=== PATIENT | female | born 1990 | race Hispanic/Latino ===

== ENCOUNTER → 2016-05-21 | Outpatient (CLI) | payer OTHER, MEDICAID ==
[~2016-05-21] MED LIST: ACYC800T PO; CEPH500C PO; CHLO15MO3 MM; CODE-54 PO; FRS325T PO; HYDR-3720 PO; HYDR-690 PO; HYDR1TAB PO; IBP600T1 PO; IBUP-15; METR500T21 PO; PREN1TAB39 PO; PREN1TAB71 PO; PROM25SU10 RC
--- OUTSIDE RECORDS SUMMARY | 2016-05-21 12:56 | XMS REPORT | Continuity of Care Document ---
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 02/17/2010 Ot 528.9 ORAL SOFT TISSUE DIS NEC 02/19/2010 Ot 276.51 DEHYDRATION 02/19/2010 Ot 523.10 CHRONIC GINGIVITIS, PLAQUE INDUCED 02/19/2010 Ot 599.0 URIN TRACT INFECTION NOS 02/19/2010 Ot 780.60 FEVER, UNSPECIFIED 02/19/2010 Ot 787.03 VOMITING ALONE 10/15/2010 LOI CARDOSO DO K V72.41 TEST NEGATIVE RESULT 10/15/2010 RADHATIARA BOO, YENNY A V72.41 TEST NEGATIVE RESULT 10/15/2010 RADHATIARA BOO, YENNY A V72.41 TEST NEGATIVE RESULT 10/15/2010 RADHATIARA BOO, YENNY A V72.41 TEST NEGATIVE RESULT 10/15/2010 RADHA APRN, YENNY A V72.41 TEST NEGATIVE RESULT 10/15/2010 RADHA APRN, YENNY A V72.41 TEST NEGATIVE RESULT 10/15/2010 RADHA APRN, YENNY A V72.41 TEST NEGATIVE RESULT 10/15/2010 YAMILEX BUI DDS V72.41 TEST NEGATIVE RESULT 10/15/2010 RADHA RAJEEV, YENNY A V72.41 TEST NEGATIVE RESULT 10/15/2010 ROBBY CARDOSO DOA K V72.41 TEST NEGATIVE RESULT 10/15/2010 ROBBY CARDOSO DOA K V72.41 TEST NEGATIVE RESULT 10/15/2010 ARPITA BROWN MD V72.41 TEST NEGATIVE RESULT 10/15/2010 LOI CARDOSO DO K V72.41 TEST NEGATIVE RESULT 10/15/2010 STEPHANIE WARE, ARPITA Oseguera V72.41 TEST NEGATIVE RESULT 10/15/2010 STEPHANIE WARE, ARPITA Oseguera V72.41 TEST NEGATIVE RESULT 10/15/2010 RADHAYENNY Ayala APRN A V72.41 TEST NEGATIVE RESULT 10/15/2010 RADHAYENNY Ayala APRN A V72.41 TEST NEGATIVE RESULT 10/15/2010 LOI CARDOSO DO V72.41 TEST NEGATIVE RESULT 10/15/2010 RADHAYENNY Ayala APRN A V72.41 TEST NEGATIVE RESULT 04/16/2011 Ot 671.13 VARICOSE VULVA-ANTEPART 06/18/2011 Ot 664.01 DEL W 1 DEG LACERAT-DEL 06/18/2011 Ot V04.81 ND FOR PROPHYLACTIC VACCIN AND INOCULATI 06/18/2011 Ot V27.0 DELIVER-SINGLE LIVEBORN 06/07/2012 LOI CARDOSO DO 599.0 URINARY TRACT INFECTION 06/07/2012 LOI CARDOSO DO 788.41 URINARY FREQUENCY 06/07/2012 LOI CARDOSO DO 789.09 ABDOMINAL PAIN OTHER SPECIFIED SITE 06/07/2012 LOI CARDOSO DO V25.42 CONTRACEPTION SURVEILLANCE (IUD) 06/07/2012 LOI CARDOSO DO V74.5 STD SCREEN 06/07/2012 YENNY GARCIA APRN A 599.0 URINARY TRACT INFECTION 06/07/2012 MEGHA GARCIA APRNIDI A 788.41 URINARY FREQUENCY 06/07/2012 MEGHA GARCIA APRNIDI A 789.09 ABDOMINAL PAIN OTHER SPECIFIED SITE 06/07/2012 YENNY GARCIA APRN A V25.42 CONTRACEPTION SURVEILLANCE (IUD) 06/07/2012 YENNY GARCIA APRN A V74.5 STD SCREEN 06/07/2012 MEGHA GARCIA APRNIDI A 599.0 URINARY TRACT INFECTION 06/07/2012 MEGHA GARCIA APRNIDI A 788.41 URINARY FREQUENCY 06/07/2012 MEGHA GARCIA APRNIDI A 789.09 ABDOMINAL PAIN OTHER SPECIFIED SITE 06/07/2012 YENNY GARCIA APRN A V25.42 CONTRACEPTION SURVEILLANCE (IUD) 06/07/2012 YENNY GARCIA APRN A V74.5 STD SCREEN 06/07/2012 MEGHA GARCIA APRNIDI A 599.0 URINARY TRACT INFECTION 06/07/2012 MEGHA GARCIA APRNIDI A 788.41 URINARY FREQUENCY 06/07/2012 MEGHA GARCIA APRNIDI A 789.09 ABDOMINAL PAIN OTHER SPECIFIED SITE 06/07/2012 MEGHA GARCIA APRNIDI A V25.42 CONTRACEPTION SURVEILLANCE (IUD) 06/07/2012 MEGHA GARCIA APRNIDI A V74.5 STD SCREEN 06/07/2012 MEGHA GARCIA APRNIDI A 599.0 URINARY TRACT INFECTION 06/07/2012 MEGHA GARCIA APRNIDI A 788.41 URINARY FREQUENCY 06/07/2012 MEGHA GARCIA APRNIDI A 789.09 ABDOMINAL PAIN OTHER SPECIFIED SITE 06/07/2012 YENNY GARCIA APRN A V25.42 CONTRACEPTION SURVEILLANCE (IUD) 06/07/2012 YENNY GARCIA APRN A V74.5 STD SCREEN 06/07/2012 YENNY GARCIA APRN A 599.0 URINARY TRACT INFECTION 06/07/2012 MEGHA GARCIA APRNIDI A 788.41 URINARY FREQUENCY 06/07/2012 YENNY GARCIA APRN A 789.09 ABDOMINAL PAIN OTHER SPECIFIED SITE 06/07/2012 YENNY GARCIA APRN A V25.42 CONTRACEPTION SURVEILLANCE (IUD) 06/07/2012 YENNY GARCIA APRN A V74.5 STD SCREEN 06/07/2012 YENNY GARCIA APRN A 599.0 URINARY TRACT INFECTION 06/07/2012 MEGHA GARCIA APRNIDI A 788.41 URINARY FREQUENCY 06/07/2012 MEGHA GARCIA APRNIDI A 789.09 ABDOMINAL PAIN OTHER SPECIFIED SITE 06/07/2012 MEGHA GARCIA APRNIDI A V25.42 CONTRACEPTION SURVEILLANCE (IUD) 06/07/2012 MEGHA GARCIA APRNIDI A V74.5 STD SCREEN 06/07/2012 WHITE DDS, YAMILEX J 599.0 URINARY TRACT INFECTION 06/07/2012 WHITE DDS, YAMILEX J 788.41 URINARY FREQUENCY 06/07/2012 WHITE DDS, YAMILEX J 789.09 ABDOMINAL PAIN OTHER SPECIFIED SITE 06/07/2012 RAMYA CASTELANS, YAMILEX Oseguera V25.42 CONTRACEPTION SURVEILLANCE (IUD) 06/07/2012 RAMYA CASTELANS, YAMILEX Oseguera V74.5 STD SCREEN 06/07/2012 MEGHA GARCIA APRNIDI A 599.0 URINARY TRACT INFECTION 06/07/2012 RADHA BOO YENNY A 788.41 URINARY FREQUENCY 06/07/2012 MEGHA GARCIA APRNIDI A 789.09 ABDOMINAL PAIN OTHER SPECIFIED SITE 06/07/2012 RADHA BOO YENNY A V25.42 CONTRACEPTION SURVEILLANCE (IUD) 06/07/2012 RADHA BOO, YENNY A V74.5 STD SCREEN 06/07/2012 CARDOSO DO, LOI K 599.0 URINARY TRACT INFECTION 06/07/2012 CARDOSO DO, LOI K 788.41 URINARY FREQUENCY 06/07/2012 CARDOSO DO, LOI K 789.09 ABDOMINAL PAIN OTHER SPECIFIED SITE 06/07/2012 CARDOSO DO LIO K V25.42 CONTRACEPTION SURVEILLANCE (IUD) 06/07/2012 CARDOSO DO, LOI K V74.5 STD SCREEN 06/07/2012 CARDOSO DO, LOI K 599.0 URINARY TRACT INFECTION 06/07/2012 CARDOSO DO, LOI K 788.41 URINARY FREQUENCY 06/07/2012 CARDOSO DO, LOI K 789.09 ABDOMINAL PAIN OTHER SPECIFIED SITE 06/07/2012 CARDOSO DO, LOI K V25.42 CONTRACEPTION SURVEILLANCE (IUD) 06/07/2012 CARDOSO DO, LOI K V74.5 STD SCREEN 06/07/2012 ARPITA BROWN MD 599.0 URINARY TRACT INFECTION 06/07/2012 ARPITA BROWN MD 788.41 URINARY FREQUENCY 06/07/2012 ARPITA BROWN MD 789.09 ABDOMINAL PAIN OTHER SPECIFIED SITE 06/07/2012 ARPITA BROWN MD V25.42 CONTRACEPTION SURVEILLANCE (IUD) 06/07/2012 ARPITA BROWN MD V74.5 STD SCREEN 06/07/2012 CARDOSO DO LOI K 599.0 URINARY TRACT INFECTION 06/07/2012 CARDOSO DO LOI K 788.41 URINARY FREQUENCY 06/07/2012 CARDOSO DO LOI K 789.09 ABDOMINAL PAIN OTHER SPECIFIED SITE 06/07/2012 ROBBY CARDOSO DOA K V25.42 CONTRACEPTION SURVEILLANCE (IUD) 06/07/2012 CARDOSO DO LOI K V74.5 STD SCREEN 06/07/2012 ARPITA BROWN MD 599.0 URINARY TRACT INFECTION 06/07/2012 ARPITA BROWN MD 788.41 URINARY FREQUENCY 06/07/2012 ARPITA BROWN MD 789.09 ABDOMINAL PAIN OTHER SPECIFIED SITE 06/07/2012 ARPITA BROWN MD V25.42 CONTRACEPTION SURVEILLANCE (IUD) 06/07/2012 ARPITA BROWN MD V74.5 STD SCREEN 06/07/2012 ARPITA BROWN MD 599.0 URINARY TRACT INFECTION 06/07/2012 ARPITA BROWN MD 788.41 URINARY FREQUENCY 06/07/2012 ARPITA BROWN MD 789.09 ABDOMINAL PAIN OTHER SPECIFIED SITE 06/07/2012 ARPITA BROWN MD V25.42 CONTRACEPTION SURVEILLANCE (IUD) 06/07/2012 ARPITA BROWN MD V74.5 STD SCREEN 06/07/2012 YENNY GARCIA APRN A 599.0 URINARY TRACT INFECTION 06/07/2012 MEGHA GARCIA APRNIDI A 788.41 URINARY FREQUENCY 06/07/2012 MEGHA GARCIA APRNIDI A 789.09 ABDOMINAL PAIN OTHER SPECIFIED SITE 06/07/2012 YENNY GARCIA APRN A V25.42 CONTRACEPTION SURVEILLANCE (IUD) 06/07/2012 MEGHA GARCIA APRNIDI A V74.5 STD SCREEN 06/07/2012 MEGHA GARCIA APRNIDI A 599.0 URINARY TRACT INFECTION 06/07/2012 MEGHA GARCIA APRNIDI A 788.41 URINARY FREQUENCY 06/07/2012 MEGHA GARCIA APRNIDI A 789.09 ABDOMINAL PAIN OTHER SPECIFIED SITE 06/07/2012 YENNY GARCIA APRN A V25.42 CONTRACEPTION SURVEILLANCE (IUD) 06/07/2012 RADHA BOO YENNY A V74.5 STD SCREEN 06/07/2012 ROBBY CARDOSO DOA K 599.0 URINARY TRACT INFECTION 06/07/2012 ROBBY CARDOSO DOA K 788.41 URINARY FREQUENCY 06/07/2012 LOI CARDOSO DO K 789.09 ABDOMINAL PAIN OTHER SPECIFIED SITE 06/07/2012 ROBBY CARDOSO DOA K V25.42 CONTRACEPTION SURVEILLANCE (IUD) 06/07/2012 ROBBY CARDOSO DOA K V74.5 STD SCREEN 06/07/2012 MEGHA GARCIA APRNIDI A 599.0 URINARY TRACT INFECTION 06/07/2012 MEGHA GARCIA APRNIDI A 788.41 URINARY FREQUENCY 06/07/2012 MEGHA GARCIA APRNIDI A 789.09 ABDOMINAL PAIN OTHER SPECIFIED SITE 06/07/2012 RADHA CHOPRAN, YENNY A V25.42 CONTRACEPTION SURVEILLANCE (IUD) 06/07/2012 RADHA CHOPRAN, YENNY A V74.5 STD SCREEN 12/28/2012 RADHA BOO, YENNY A V25.01 CONTRACEPTION - ORAL CONTRACEPTION 12/28/2012 RADHA BOO, YENNY A V25.01 CONTRACEPTION - ORAL CONTRACEPTION 12/28/2012 RADHA BOO YENNY A V25.01 CONTRACEPTION - ORAL CONTRACEPTION 12/28/2012 RADHA BOO, YENNY A V25.01 CONTRACEPTION - ORAL CONTRACEPTION 12/28/2012 RADHA BOO YENNY A V25.01 CONTRACEPTION - ORAL CONTRACEPTION 12/28/2012 RADHA BOO, YENNY A V25.01 CONTRACEPTION - ORAL CONTRACEPTION 12/28/2012 YAMILEX BUI DDS V25.01 CONTRACEPTION - ORAL CONTRACEPTION 12/28/2012 RADHA BOO YENNY A V25.01 CONTRACEPTION - ORAL CONTRACEPTION 12/28/2012 LOI CARDOSO DO V25.01 CONTRACEPTION - ORAL CONTRACEPTION 12/28/2012 LOI CARDOSO DO K V25.01 CONTRACEPTION - ORAL CONTRACEPTION 12/28/2012 ARPITA BROWN MD V25.01 CONTRACEPTION - ORAL CONTRACEPTION 12/28/2012 LOI CARDOSO DO K V25.01 CONTRACEPTION - ORAL CONTRACEPTION 12/28/2012 ARPITA BROWN MD V25.01 CONTRACEPTION - ORAL CONTRACEPTION 12/28/2012 ARPITA BROWN MD V25.01 CONTRACEPTION - ORAL CONTRACEPTION 12/28/2012 RADHA BOO YENNY A V25.01 CONTRACEPTION - ORAL CONTRACEPTION 12/28/2012 RADHA BOO YENYN A V25.01 CONTRACEPTION - ORAL CONTRACEPTION 12/28/2012 LOI CARDOSO DO V25.01 CONTRACEPTION - ORAL CONTRACEPTION 12/28/2012 RADHA YENNY BOO A V25.01 CONTRACEPTION - ORAL CONTRACEPTION 01/03/2013 IVON ZEE APRN Ot 842.00 SPRAIN OF WRIST NOS 01/03/2013 IVON ZEE APRN Ot 959.3 ELB/FOREARM/WRST INJ NOS 01/03/2013 IVON ZEE APRN Ot E000.8 OTHER EXTERNAL CAUSE STATUS 01/03/2013 IVON ZEE APRN Ot E888.9 FALL NOS 04/19/2013 RADHALucy BOO YENNY A V72.42 TEST POSITIVE RESULT 04/19/2013 RADHAMEGHA Ayala APRNIDI A V76.10 BREAST CANCER SCREENING 04/19/2013 RADHAMEGHA Ayala APRNIDI A V76.2 CERVICAL CANCER SCREENING (PAP SMEAR) 04/19/2013 RADHAMEGHA Ayala APRNIDI A V72.42 TEST POSITIVE RESULT 04/19/2013 RADHAMEGHA Ayala APRNIDI A V76.10 BREAST CANCER SCREENING 04/19/2013 RADHALucy BOO YENNY A V76.2 CERVICAL CANCER SCREENING (PAP SMEAR) 04/19/2013 RADHA APRN, YENNY A V72.42 TEST POSITIVE RESULT 04/19/2013 RADHA APRN, YENNY A V76.10 BREAST CANCER SCREENING 04/19/2013 RADHALucy BOO YENNY A V76.2 CERVICAL CANCER SCREENING (PAP SMEAR) 04/19/2013 RADHAMEGHA Ayala APRNIDI A V72.42 TEST POSITIVE RESULT 04/19/2013 RADHALucy BOO YENNY A V76.10 BREAST CANCER SCREENING 04/19/2013 RADHAMEGHA Ayala APRNIDI A V76.2 CERVICAL CANCER SCREENING (PAP SMEAR) 04/19/2013 RADHALucy BOO YENNY A V72.42 TEST POSITIVE RESULT 04/19/2013 RADHALucy BOO YENNY A V76.10 BREAST CANCER SCREENING 04/19/2013 RADHALucy BOO YENNY A V76.2 CERVICAL CANCER SCREENING (PAP SMEAR) 04/19/2013 YAMILEX BUI DDS V72.42 TEST POSITIVE RESULT 04/19/2013 YAMILEX BUI DDS V76.10 BREAST CANCER SCREENING 04/19/2013 YAMILEX BUI DDS V76.2 CERVICAL CANCER SCREENING (PAP SMEAR) 04/19/2013 YENNY GARCIA APRN A V72.42 TEST POSITIVE RESULT 04/19/2013 YENNY GARCIA APRN A V76.10 BREAST CANCER SCREENING 04/19/2013 YENNY GARCIA APRN A V76.2 CERVICAL CANCER SCREENING (PAP SMEAR) 04/19/2013 CARDOSO ROBBY MARCUMA K V72.42 TEST POSITIVE RESULT 04/19/2013 CARDOSO DO LOI K V76.10 BREAST CANCER SCREENING 04/19/2013 JANAE MARCUMROBBYA K V76.2 CERVICAL CANCER SCREENING (PAP SMEAR) 04/19/2013 CARDOSO ROBBY MARCUMA K V72.42 TEST POSITIVE RESULT 04/19/2013 CARDOSO ROBBY MARCUMA K V76.10 BREAST CANCER SCREENING 04/19/2013 CARDOSO ROBBY MARCUMA K V76.2 CERVICAL CANCER SCREENING (PAP SMEAR) 04/19/2013 ARPITA BROWN MD V72.42 TEST POSITIVE RESULT 04/19/2013 ARPITA BROWN MD V76.10 BREAST CANCER SCREENING 04/19/2013 ARPITA BROWN MD V76.2 CERVICAL CANCER SCREENING (PAP SMEAR) 04/19/2013 CARDOSO ROBBY MARCUMA K V72.42 TEST POSITIVE RESULT 04/19/2013 CARDOSO ROBBY MARCUMA K V76.10 BREAST CANCER SCREENING 04/19/2013 CARDOSO ROBBY MARCUMA K V76.2 CERVICAL CANCER SCREENING (PAP SMEAR) 04/19/2013 ARPITA BROWN MD V72.42 TEST POSITIVE RESULT 04/19/2013 ARPITA BROWN MD V76.10 BREAST CANCER SCREENING 04/19/2013 ARPITA BROWN MD V76.2 CERVICAL CANCER SCREENING (PAP SMEAR) 04/19/2013 ARPITA BROWN MD V72.42 TEST POSITIVE RESULT 04/19/2013 ARPITA BROWN MD6.10 BREAST CANCER SCREENING 04/19/2013 ARPITA BROWN MD V76.2 CERVICAL CANCER SCREENING (PAP SMEAR) 04/19/2013 YENNY GARCIA APRN V72.42 TEST POSITIVE RESULT 04/19/2013 RADHA ORCHID HAND, YENNY A V76.10 BREAST CANCER SCREENING 04/19/2013 RADHA CHOPRAN, YENNY A V76.2 CERVICAL CANCER SCREENING (PAP SMEAR) 04/19/2013 RADHA CHOPRAN, YENNY A V72.42 TEST POSITIVE RESULT 04/19/2013 RADHA CHOPRAN, YENNY A V76.10 BREAST CANCER SCREENING 04/19/2013 RADHA CHOPRAN, YENNY A V76.2 CERVICAL CANCER SCREENING (PAP SMEAR) 04/19/2013 CARDOSO DO LOI K V72.42 TEST POSITIVE RESULT 04/19/2013 CARDOSO DO, LOI K V76.10 BREAST CANCER SCREENING 04/19/2013 CARDOSO DO, LOI K V76.2 CERVICAL CANCER SCREENING (PAP SMEAR) 04/19/2013 RADHA BOO, YENNY A V72.42 TEST POSITIVE RESULT 04/19/2013 RADHA CHOPRAN, YENNY A V76.10 BREAST CANCER SCREENING 04/19/2013 RADHA CHOPRAN, YENNY A V76.2 CERVICAL CANCER SCREENING (PAP SMEAR) 04/24/2013 RADHA CHOPRAN, YENNY A 640.00 THREATENED 04/24/2013 RADHA ORCHID HAND, YENNY A 640.00 THREATENED 04/24/2013 RADHA ORCHID HAND, YENNY A 640.00 THREATENED 04/24/2013 RADHA ORCHID HAND, YENNY A 640.00 THREATENED 04/24/2013 RADHA ORCHID HAND, YENNY A 640.00 THREATENED 04/24/2013 YAMILEX BUI DDS 640.00 THREATENED 04/24/2013 RADHA ORCHID HAND, YENNY A 640.00 THREATENED 04/24/2013 ROBBY CARDOSO DOA K 640.00 THREATENED 04/24/2013 CARDOSO ROBBY MARCUMA K 640.00 THREATENED 04/24/2013 ARPITA BROWN MD 640.00 THREATENED 04/24/2013 ROBBY CARDOSO DOA K 640.00 THREATENED 04/24/2013 STEPHANIE WARE, ARPITA Oseguera 640.00 THREATENED 04/24/2013 ARPITA BROWN MD 640.00 THREATENED 04/24/2013 RADHA ORCHID HAND, YENNY A 640.00 THREATENED 04/24/2013 RADHA ORCHID HAND, YENNY A 640.00 THREATENED 04/24/2013 CARDOSO DO, LOI K 640.00 THREATENED 04/24/2013 RADHA ORCHID HAND, YENNY A 640.00 THREATENED 05/30/2013 RADHA ORCHID HAND, YENNY A V04.81 FLU SHOT 05/30/2013 RADHA ORCHID HAND, YENNY A V22.1 , NORMAL OTHER 05/30/2013 CARDOSO DO, LOI K V04.81 FLU SHOT 05/30/2013 CARDOSO DO, LOI K V22.1 , NORMAL OTHER 05/30/2013 CARDOSO DO, LOI K V04.81 FLU SHOT 05/30/2013 CARDOSO DO, LOI K V22.1 , NORMAL OTHER 05/30/2013 STEPHANIE WARE, ARPITA Oseguera V04.81 FLU SHOT 05/30/2013 STEPHANIE WARE, ARPITA Oseguera V22.1 , NORMAL OTHER 05/30/2013 CARDSOO DO, LOI K V04.81 FLU SHOT 05/30/2013 CARDOSO DO, LOI K V22.1 , NORMAL OTHER 05/30/2013 STEPHANIE WARE, ARPITA Oseguera V04.81 FLU SHOT 05/30/2013 ARPITA BROWN MD V22.1 , NORMAL OTHER 05/30/2013 ARPITA BROWN MD V04.81 FLU SHOT 05/30/2013 ARPITA BROWN MD V22.1 , NORMAL OTHER 05/30/2013 RADHA ORCHID HAND, YENNY A V04.81 FLU SHOT 05/30/2013 RDAHA ORCHID HAND, YENNY A V22.1 , NORMAL OTHER 05/30/2013 RADHA ORCHID HAND, YENNY A V04.81 FLU SHOT 05/30/2013 RADHA ORCHID HAND, YENNY A V22.1 , NORMAL OTHER 05/30/2013 CARDOSO DO, LOI K V04.81 FLU SHOT 05/30/2013 CARDOSO DO, LOI K V22.1 , NORMAL OTHER 05/30/2013 RADHA ORCHID HAND, YENNY A V04.81 FLU SHOT 05/30/2013 RADHA ORCHID HAND, YENNY A V22.1 , NORMAL OTHER 08/21/2013 CARDOSO DO, LOI K Ot V22.1 SUPERVIS OT NORMAL PREG 11/01/2013 STEPHANIE WARE, ARPITA Oseguera V06.1 TDAP DX 11/01/2013 STEPHANIE WARE, ARPITA Oseguera V06.1 TDAP DX 11/01/2013 YENNY GARCIA APRN V06.1 TDAP DX 11/01/2013 YENNY GARCIA APRN V06.1 TDAP DX 11/01/2013 LOI CARDOSO DO V06.1 TDAP DX 11/01/2013 YENNY GARCIA APRN V06.1 TDAP DX 11/24/2013 STEPHANIE WARE, ARPITA Oseguera Ot 644.03 THRT DOUGLAS LABOR-ANTEPART 12/08/2013 ARPITA BROWN MD Ot 650 NORMAL DELIVERY 12/08/2013 STEPHANIE WARE, ARPITA Oseguera Ot V06.1 [id number]-[id number], COMBINED [ 12/08/2013 ARPITA BROWN MD Ot V06.4 OSJ-ASNLIP-YOBCC-RUBELLA 12/08/2013 ARPITA BROWN MD Ot V27.0 DELIVER-SINGLE LIVEBORN 12/27/2013 YENNY GARCIA APRN V25.09 CONTRACEPTIVE COUNSELING - GENERAL 12/27/2013 YENNY GARCIA APRN V25.09 CONTRACEPTIVE COUNSELING - GENERAL 12/27/2013 LOI CARDOSO DO V25.09 CONTRACEPTIVE COUNSELING - GENERAL 12/27/2013 YENNY GARCIA APRN V25.09 CONTRACEPTIVE COUNSELING - GENERAL 01/18/2014 YENNY GARCIA APRN 616.10 VAGINITIS AND VULVOVAGINITIS UNSPECIFIED 01/18/2014 YENNY GARCIA APRN V24.2 F/U, ROUTINE 01/18/2014 YENNY GARCIA APRN V25.11 IUD INSERTION 01/18/2014 LOI CARDOSO DO 616.10 VAGINITIS AND VULVOVAGINITIS UNSPECIFIED 01/18/2014 LOI CARDOSO DO V24.2 F/U, ROUTINE 01/18/2014 LOI CARDOSO DO V25.11 IUD INSERTION 01/18/2014 YENNY GARCIA APRN 616.10 VAGINITIS AND VULVOVAGINITIS UNSPECIFIED 01/18/2014 YENNY GARCIA APRN V24.2 F/U, ROUTINE 01/18/2014 YENNY GARCIA APRN V25.11 IUD INSERTION 06/05/2014 JANAE MARCUM LOI Ramírez 460 ACUTE NASOPHARYNGITIS (COMMON COLD) 06/05/2014 YENNY GARCIA APRN 460 ACUTE NASOPHARYNGITIS (COMMON COLD) 07/31/2014 RADHA BOO, YENNY A 789.00 ABDOMINAL PAIN UNSPECIFIED SITE 01/12/2015 Ot 649.63 01/12/2015 Ot 649.53 01/12/2015 YENNY GARCIA A ORCHID HAND Ot V28.89 01/12/2015 YENNY GARCIA ORCHID HAND Ot V28.89 01/12/2015 YENNY GARCIA APRN Ot 640.03 01/12/2015 STEPHANIE WARE, ARPITA Oseguera Ot V22.1 01/12/2015 AMIRAH WARE, FLORENCIA Zelaya Ot B37.3 CANDIDIASIS OF VULVA AND VAGINA 01/12/2015 FLORENCIA MACARIO MD Ot B96.89 OTH BACTERIAL AGENTS THE CAUSE OF DIS 01/12/2015 FLORENCIA MACARIO MD Ot N76.0 ACUTE VAGINITIS 01/12/2015 FLORENCIA MACARIO MD Ot R10.30 LOWER ABDOMINAL PAIN, UNSPECIFIED 01/12/2015 Ot 649.63 01/12/2015 Ot 649.53 01/12/2015 YENNY GARCIA APRN Ot V28.89 01/12/2015 YENNY GARCIA APRN Ot V28.89 01/12/2015 YENNY GARCIA APRN Ot 640.03 01/12/2015 ARPITA BROWN MD Ot V22.1 01/12/2015 Ot 649.63 01/12/2015 Ot 649.53 01/12/2015 YENNY GARCIA A ORCHID HAND Ot V28.89 01/12/2015 YENNY GARCIA ORCHID HAND Ot V28.89 01/12/2015 YENNY GARCIA A ORCHID HAND Ot 640.03 01/12/2015 ARPITA BROWN MD Ot V22.1 02/19/2015 Ot 649.63 02/19/2015 Ot 649.53 02/19/2015 YENNY GARCIA ORCHID HAND Ot V28.89 02/19/2015 YENNY GARCIA ORCHID HAND Ot V28.89 02/19/2015 YENNY GARCIA ORCHID HAND Ot 640.03 02/19/2015 ARPITA BROWN MD Ot V22.1 02/19/2015 Ot 649.63 02/19/2015 Ot 649.53 02/19/2015 YENNY GARCIA ORCHID HAND Ot V28.89 02/19/2015 YENNY GARCIA ORCHID HAND Ot V28.89 02/19/2015 YENNY GARCIA APRN Ot 640.03 02/19/2015 STEPHANIE WARE, ARPITA Oseguera Ot V22.1 04/25/2015 Ot 649.63 04/25/2015 Ot 649.53 04/25/2015 YENNY GARCIA ORCHID HAND Ot V28.89 04/25/2015 RADHAYENNY ORCHID HAND Ot V28.89 04/25/2015 RADHAYENNY ORCHID HAND Ot 640.03 04/25/2015 STEPHANIE WARE, ARPITA Oseguera Ot V22.1 04/30/2015 STEPHANIE WARE, ARPITA Oseguera Ot Z36 04/30/2015 STEPHANIE WARE, ARPITA Oseguera Ot Z3A.09 04/30/2015 STEPHANIE WARE, ARPITA Oseguera Ot Z36 04/30/2015 STEPHANIE WARE, ARPITA Oseguera Ot Z3A.09 05/22/2015 STEPHANIE WARE, ARPITA Oseguera Ot Z36 05/22/2015 STEPHANIE WARE, ARPITA Oseguera Ot Z3A.09 06/05/2015 STEPHANIE WARE, ARPITA Oseguera Ot O20.9 06/05/2015 ARPITA BROWN MD Ot Z3A.14 06/27/2015 Ot 649.63 06/27/2015 Ot 649.53 06/27/2015 RADHAYENNY ORCHID HAND Ot V28.89 06/27/2015 RADHAYENNY ORCHID HAND Ot V28.89 06/27/2015 RADHAYENNY ORCHID HAND Ot 640.03 06/27/2015 STEPHANIE WARE, ARPITA Oseguera Ot V22.1 06/27/2015 STEPHANIE ARPITA WARE Ot O20.9 06/27/2015 ARPITA BROWN MD, Ot Z3A.14 06/27/2015 ARPITA BROWN MD, Ot Z36 06/27/2015 ARPITA BROWN MD, Ot Z3A.09 07/26/2015 Ot 649.63 UTERINE SIZE DATE DISCREPANCY, ANTEPARTU 07/26/2015 Ot 649.53 SPOTTING COMP , ANTEPARTUM COND 07/26/2015 YENNY GARCIA APRN Ot V28.89 OTHER SPECIFIED SCREENING 07/26/2015 YENNY GARCIA APRN Ot V28.89 OTHER SPECIFIED SCREENING 07/26/2015 YENNY GARCIA APRN Ot 640.03 THREATEN ABORT-ANTEPART 07/26/2015 ARPITA BROWN MD, Ot V22.1 SUPERVIS OTH NORMAL PREG 07/26/2015 ARPITA BROWN MD, Ot Z36 ENCOUNTER FOR SCREENING OF MOT 07/26/2015 ARPITA BROWN MD, Ot Z3A.09 9 WEEKS GESTATION OF 07/26/2015 ARPITA BROWN MD, Ot O20.9 HEMORRHAGE IN EARLY , UNSPECIFI 07/26/2015 ARPITA BROWN MD, Ot Z3A.14 14 WEEKS GESTATION OF 07/29/2015 ARPITA BROWN MD, Ot Z36 ENCOUNTER FOR SCREENING OF MOT 07/29/2015 ARPITA BROWN MD, Ot Z36 ENCOUNTER FOR SCREENING OF MOT 08/14/2015 ARPITA BROWN MD, Ot Z36 ENCOUNTER FOR SCREENING OF MOT 09/02/2015 ARPITA BROWN MD, Ot Z36 ENCOUNTER FOR SCREENING OF MOT 10/21/2015 Ot 649.63 UTERINE SIZE DATE DISCREPANCY, ANTEPARTU 10/21/2015 Ot 649.53 SPOTTING COMP , ANTEPARTUM COND 10/21/2015 YENNY GARCIA APRN Ot V28.89 OTHER SPECIFIED SCREENING 10/21/2015 YENNY GARCIA APRN Ot V28.89 OTHER SPECIFIED SCREENING 10/21/2015 YENNY GARCIA APRN Ot 640.03 THREATEN ABORT-ANTEPART 10/21/2015 ARPITA BROWN MD, Ot V22.1 SUPERVIS OTH NORMAL PREG 10/21/2015 ARPITA BROWN MD, Ot Z36 ENCOUNTER FOR SCREENING OF MOT 10/21/2015 ARPITA BROWN MD, Ot Z3A.09 9 WEEKS GESTATION OF 10/21/2015 ARPITA BROWN MD, Ot O20.9 HEMORRHAGE IN EARLY , UNSPECIFI 10/21/2015 ARPITA BROWN MD, Ot Z3A.14 14 WEEKS GESTATION OF 10/21/2015 ARPITA BROWN MD, Ot Z36 ENCOUNTER FOR SCREENING OF MOT 10/22/2015 ARPITA BROWN MD, Ot N94.89 OTH COND ASSOC W FEMALE GENITAL ORGANS A 10/22/2015 ARPITA BROWN MD, Ot Z3A.36 36 WEEKS GESTATION OF 10/27/2015 JOSEPH IBARRA MD Ot O36.8130 DECREASED MOVEMENTS, THIRD TRIMEST 10/27/2015 JOSEPH IBARRA MD, Ot Z3A.36 36 WEEKS GESTATION OF 10/28/2015 ARPITA BROWN MD, Ot N94.89 OTH COND ASSOC W FEMALE GENITAL ORGANS A 10/28/2015 ARPITA BROWN MD, Ot Z3A.36 36 WEEKS GESTATION OF 11/07/2015 JOSEPH IBARRA MD Ot O36.8130 DECREASED MOVEMENTS, THIRD TRIMEST 11/07/2015 JOSEPH IBARRA MD, Ot Z3A.36 36 WEEKS GESTATION OF 11/14/2015 Ot 649.63 UTERINE SIZE DATE DISCREPANCY, ANTEPARTU 11/14/2015 Ot 649.53 SPOTTING COMP , ANTEPARTUM COND 11/14/2015 YENNY GARCIA APRN Ot V28.89 OTHER SPECIFIED SCREENING 11/14/2015 YENNY GARCIA APRN Ot V28.89 OTHER SPECIFIED SCREENING 11/14/2015 YENNY GARCIA APRN Ot 640.03 THREATEN ABORT-ANTEPART 11/14/2015 ARPITA BROWN MD, Ot V22.1 SUPERVIS OTH NORMAL PREG 11/14/2015 ARPITA BROWN MD, Ot Z36 ENCOUNTER FOR SCREENING OF MOT 11/14/2015 ARPITA BROWN MD, Ot Z3A.09 9 WEEKS GESTATION OF 11/14/2015 ARPITA BROWN MD, Ot O20.9 HEMORRHAGE IN EARLY , UNSPECIFI 11/14/2015 ARPITA BROWN MD, Ot Z3A.14 14 WEEKS GESTATION OF 11/14/2015 ARPITA BROWN MD, Ot Z36 ENCOUNTER FOR SCREENING OF MOT 11/15/2015 Ot 649.63 UTERINE SIZE DATE DISCREPANCY, ANTEPARTU 11/15/2015 Ot 649.53 SPOTTING COMP , ANTEPARTUM COND 11/15/2015 YENNY GARCIA ORCHID HAND Ot V28.89 OTHER SPECIFIED SCREENING 11/15/2015 YENNY GARCIA ORCHID HAND Ot V28.89 OTHER SPECIFIED SCREENING 11/15/2015 YENNY GARCIA APRN Ot 640.03 THREATEN ABORT-ANTEPART 11/15/2015 ARPITA BROWN MD, Ot V22.1 SUPERVIS OTH NORMAL PREG 11/15/2015 ARPITA BROWN MD, Ot Z36 ENCOUNTER FOR SCREENING OF MOT 11/15/2015 ARPITA BROWN MD, Ot Z3A.09 9 WEEKS GESTATION OF 11/15/2015 ARPITA BROWN MD, Ot O20.9 HEMORRHAGE IN EARLY , UNSPECIFI 11/15/2015 ARPITA BROWN MD, Ot Z3A.14 14 WEEKS GESTATION OF 11/15/2015 ARPITA BROWN MD, Ot Z36 ENCOUNTER FOR SCREENING OF MOT 11/15/2015 ARPITA BROWN MD, Ot Z36 ENCOUNTER FOR SCREENING OF MOT 11/15/2015 ARPITA BROWN MD, Ot Z3A.09 9 WEEKS GESTATION OF 11/15/2015 ARPITA BROWN MD, Ot O20.9 HEMORRHAGE IN EARLY , UNSPECIFI 11/15/2015 ARPITA BROWN MD, Ot Z3A.14 14 WEEKS GESTATION OF 11/15/2015 ARPITA BROWN MD, Ot Z36 ENCOUNTER FOR SCREENING OF MOT 11/15/2015 ARPITA BROWN MD, Ot Z36 ENCOUNTER FOR SCREENING OF MOT 11/15/2015 ARPITA BROWN MD, Ot Z3A.09 9 WEEKS GESTATION OF 11/15/2015 ARPITA BROWN MD, Ot O20.9 HEMORRHAGE IN EARLY , UNSPECIFI 11/15/2015 ARPITA BROWN MD, Ot Z3A.14 14 WEEKS GESTATION OF 11/15/2015 ARPITA BROWN MD, Ot Z36 ENCOUNTER FOR SCREENING OF MOT 11/16/2015 ARPITA BROWN MD, Ot O80 ENCOUNTER FOR FULL-TERM UNCOMPLICATED DE 11/16/2015 ARPITA BROWN MD, Ot Z23 ENCOUNTER FOR IMMUNIZATION 11/16/2015 ARPITA BROWN MD, Ot Z37.0 SINGLE LIVE 11/16/2015 ARPITA BROWN MD, Ot Z3A.39 39 WEEKS GESTATION OF Procedures Code Description Performed By Performed On 96.49 06/16/2011 75.69 06/17/2011 02709 URINE TEST (IN-HOUSE) 06/07/2012 75565 UA W/ CULTURE IF INDICATED 06/07/2012 63252 TRICHOMONAS (IN-HOUSE) 06/07/2012 22642 CULTURE UROGENITAL 06/07/2012 57281 CULTURE URINE 21705 GC/CHLAM PROBE ([facility]) 06/07/2012 39050 URINE TEST (IN-HOUSE) 12/28/2012 94111 US OB - EARLY <14 WEEKS 04/19/2013 73435 CULTURE UROGENITAL 04/19/2013 14953 GC/CHLAM PROBE ([facility]) 04/19/2013 22124 PAP SMEAR 2013 Q0091 PAP SMEAR OBTAIN SMEAR 04/19/2013 [id number] TEST, URINE (IN-HOUSE) 04/19/2013 52836 TRICHOMONAS (IN-HOUSE) 04/19/2013 81986 ROUTINE VENIPUNCTURE 04/25/2013 51248 HCG QUANTITATIVE 04/25/2013 94815 BLOOD TYPE/Rh FACTOR 04/25/2013 08571 ROUTINE VENIPUNCTURE 04/27/2013 39975 US OB - EARLY <14 WEEKS 04/27/2013 00541 HCG QUANTITATIVE 04/27/2013 04626 ROUTINE VENIPUNCTURE 05/01/2013 80385 HCG QUANTITATIVE 05/01/2013 86895 US OB - FOLLOW UP 05/02/2013 89944 ROUTINE VENIPUNCTURE 05/30/2013 96581 T4 FREE 2013 63704 T3 TOTAL 2013 35444 SYPHILLIS-STATE [facility] 05/30/2013 29715 HIV (STATE [facility]) 05/30/2013 15194 ANTIBODY SCREEN (order) 05/30/2013 40168 HEP B SURFACE ANTIGEN (STATE) 05/30/2013 34154 UA OB DIP 2013 93930 CBC 05/30/2013 81555 TSH 05/30/2013 [id number] ANTIBODY SCREEN (RESULT ONLY) 05/31/2013 93098 BLOOD TYPE/Rh FACTOR 05/31/2013 02839 RUBELLA ANTIBODY, IGG 05/31/2013 74381 CULTURE URINE 55544 UA OB DIP 2013 70602 UA OB DIP 2013 72412 OB - FOLLOW UP 08/21/2013 68975 UA OB DIP 2013 96774 OB - COMPLETE >14 WEEKS 09/01/2013 31212 ROUTINE VENIPUNCTURE 09/27/2013 93738 UA OB DIP 2013 25770 CBC 09/27/2013 98607 GLUCOSE JANNY 1 HOUR 09/27/2013 27825 UA OB DIP 2013 69303 UA OB DIP 2013 67297 UA OB DIP 2013 11073 UA OB DIP 2013 24061 CULTURE GROUP B STREP VAG 12/01/2013 81920 UA OB DIP 2013 73.59 12/07/2013 60296 IUD INSERTION 12/2013 J7302 LEVONORGESTREL IU CONTRACEPT 01/18/2014 02854 TEST, URINE (IN-HOUSE) 01/18/2014 [id number] 11/15/2015 Results Test Result Range Complete blood count (CBC) with automated white blood cell (WBC) differential - 11/14/15 21:45 Blood leukocytes automated count (number/volume) 7.0 10*3/ uL 4.3-11.0 Blood erythrocytes automated count (number/volume) 3.84 10*6 /uL 4.35-5.85 Venous blood hemoglobin measurement (mass/volume) 11.6 g/dL 11.5-16.0 Blood hematocrit (volume fraction) 35 % 35-52 Automated erythrocyte mean corpuscular volume 90 [foz_us] 80-99 Automated erythrocyte mean corpuscular hemoglobin (mass per erythrocyte) 30 pg 25-34 Automated erythrocyte mean corpuscular hemoglobin concentration measurement ( mass/volume) 34 g/dL 32-36 Automated erythrocyte distribution width ratio 13.1 % 10.0-14.5 Automated blood platelet count (count/volume) 194 10*3/uL 130-400 Automated blood platelet mean volume measurement 10.8 [foz_ us] 7.4-10.4 Automated blood neutrophils/100 leukocytes 58 % 42-75 Automated blood lymphocytes/100 leukocytes 27 % 12-44 Blood monocytes/100 leukocytes 14 % 0-12 Automated blood eosinophils/100 leukocytes 1 % 0-10 Automated blood basophils/100 leukocytes 0 % 0-10 Blood neutrophils automated count (number/volume) 4.1 10*3 1.8-7.8 Blood lymphocytes automated count (number/volume) 1.9 10*3 1.0-4.0 Blood monocytes automated count (number/volume) 1.0 10*3 0.0-1.0 Automated eosinophil count 0.1 10*3/uL 0.0-0.3 Automated blood basophil count (count/volume) 0.0 10*3/uL 0.0-0.1 Blood type T Indirect antibody screen panel - 11/14/15 21:45 ABO+Rh group OP NRG Transfusion band number [id number] [facility] Blood group antibody screen NEGATIVE NR Complete blood count (CBC) with automated white blood cell (WBC) differential - 11/16/15 05:36 Blood leukocytes automated count (number/volume) 8.7 10*3/ uL 4.3-11.0 Blood erythrocytes automated count (number/volume) 3.74 10*6 /uL 4.35-5.85 Venous blood hemoglobin measurement (mass/volume) 11.0 g/dL 11.5-16.0 Blood hematocrit (volume fraction) 34 % 35-52 Automated erythrocyte mean corpuscular volume 91 [foz_us] 80-99 Automated erythrocyte mean corpuscular hemoglobin (mass per erythrocyte) 29 pg 25-34 Automated erythrocyte mean corpuscular hemoglobin concentration measurement ( mass/volume) 32 g/dL 32-36 Automated erythrocyte distribution width ratio 13.1 % 10.0-14.5 Automated blood platelet count (count/volume) 177 10*3/uL 130-400 Automated blood platelet mean volume measurement 10.5 [foz_ us] 7.4-10.4 Automated blood neutrophils/100 leukocytes 57 % 42-75 Automated blood lymphocytes/100 leukocytes 29 % 12-44 Blood monocytes/100 leukocytes 13 % 0-12 Automated blood eosinophils/100 leukocytes 1 % 0-10 Automated blood basophils/100 leukocytes 0 % 0-10 Blood neutrophils automated count (number/volume) 4.9 10*3 1.8-7.8 Blood lymphocytes automated count (number/volume) 2.5 10*3 1.0-4.0 Blood monocytes automated count (number/volume) 1.2 10*3 0.0-1.0 Automated eosinophil count 0.1 10*3/uL 0.0-0.3 Automated blood basophil count (count/volume) 0.0 10*3/uL 0.0-0.1 Encounters ACCT No. Visit Date/Time Discharge Status Pt. Type Provider Facility Loc./Unit Complaint [id number] 07/31/2014 09:03:00 07/31/2014 23: 59:59 CLS Outpatient YENNY GARCIA APRN [id number] 06/05/2014 10:43:00 06/05/2014 23: 59:59 CLS Outpatient LOI CARDOSO DO [id number] 01/18/2014 13:26:00 01/18/2014 23: 59:59 CLS Outpatient YENNY GARCIA APRN [id number] 12/27/2013 10:26:00 12/27/2013 23: 59:59 CLS Outpatient YENNY GARCIA APRN [id number] 12/06/2013 15:34:00 12/06/2013 23: 59:59 CLS Outpatient ARPITA BROWN MD [id number] 11/22/2013 13:59:00 11/22/2013 23: 59:59 CLS Outpatient ARPITA BROWN MD [id number] 10/18/2013 13:56:00 10/18/2013 23: 59:59 CLS Outpatient LOI CARDOSO DO [id number] 09/27/2013 13:56:00 09/27/2013 23: 59:59 CLS Outpatient ARPITA BROWN MD [id number] 07/26/2013 14:30:00 07/26/2013 23: 59:59 CLS Outpatient LOI CARDOSO DO [id number] 06/28/2013 13:43:00 06/28/2013 23: 59:59 CLS Outpatient LOI CARDOSO DO [id number] 05/30/2013 09:54:00 05/30/2013 23: 59:59 CLS Outpatient [facility] YENNY BOO [id number] 05/15/2013 07:39:00 05/15/2013 23: 59:59 CLS Outpatient RAMYA YAMILEX WHITMORE Oumar [id number] 05/02/2013 15:16:00 05/02/2013 23: 59:59 CLS Outpatient [facility] YENNY BOO [id number] 05/01/2013 07:56:00 05/01/2013 23: 59:59 [id number] 04/27/2013 08:03:00 04/27/2013 23: 59:59 [facility] [id number] 04/25/2013 08:22:00 04/25/2013 23: 59:59 [facility] [id number] 04/19/2013 08:52:00 04/19/2013 23: 59:59 [facility] [id number] 12/28/2012 14:01:00 12/28/2012 23: 59:59 [facility] [id number] 06/07/2012 10:59:00 06/07/2012 23: 59:59 CLS Outpatient LOI CARDOSO DO
--- NOTE | 2016-05-21 15:31 | Diagnostic Imaging Report ---
First trimester OB ultrasound. INDICATION: Dating. FINDINGS: There is a normal-appearing single intrauterine . An embryo is seen with cardiac activity at 149 beats per minute. The crown-rump length is at 8 weeks and zero days. MATTIE is 12/31/16. There is subchorionic hemorrhage measuring 2.6 x 1 x 4.5 CM around the gestational sac. IMPRESSION: Live single intrauterine . Small subchorionic hemorrhage. Dictated by: Dictated on workstation # [id number]
== END ==
LOC: RAD 12:51
PROVIDERS: ATTEND Family Medicine
DX: Z36 Encounter for antenatal screening of mother (principal); Z3A.01 Less than 8 weeks gestation of pregnancy
CPT/HCPCS: 76801

== ENCOUNTER → 2016-08-06 | Outpatient (CLI) | payer OTHER, MEDICAID ==
--- NOTE | 2016-08-06 13:43 | Diagnostic Imaging Report ---
OB ultrasound. INDICATION: survey. FINDINGS: heart rate is 139 beats per minutes. The placenta is anterior and extends to the lower uterine segment with coverage of the internal os compatible with placenta previa. The four-chamber view, the cord insertion, the stomach, the ventricles, and the spine appear unremarkable. No hydronephrosis or cystic mass in the kidneys seen. There is suggestion of two umbilical arteries and therefore three-vessel cord. The growth parameters are: Biparietal diameter: 19 weeks 0 day. Head circumference: 19 weeks 0 day. Abdominal circumference: 19 week 5 days. Femur length: 19 weeks 2 days. These average at: 19 weeks and 2 days. This is compatible with the gestational age of 19 weeks and 0 days based on first trimester ultrasound dating. IMPRESSION: Appropriate interval growth. Placenta previa. Follow-up in 8 weeks is suggested to reevaluate the placenta position. Dictated by: Dictated on workstation # [id number]
== END ==
LOC: RAD 10:51
PROVIDERS: ATTEND Family Medicine
DX: Z36 Encounter for antenatal screening of mother (principal); Z3A.19 19 weeks gestation of pregnancy
CPT/HCPCS: 76805

== ENCOUNTER → 2016-09-29 | Outpatient (CLI) | payer OTHER, MEDICAID ==
--- NOTE | 2016-09-29 17:25 | Diagnostic Imaging Report ---
INDICATION: Followup placenta previa TECHNIQUE: Multiple real-time grayscale images were obtained over the gravid uterus. COMPARISON: 08/06/16 FINDINGS: heart rate is 138 beats per minute. The placenta is anterior and does not extend into the lower uterine segment at this time. The fetus is in breech position. There is an adequate amount of amniotic fluid seen. IMPRESSION: No placenta previa. Dictated by: Dictated on workstation # [id number]
== END ==
LOC: RAD 12:59
PROVIDERS: ATTEND Family Medicine
DX: O44.00 Complete placenta previa NOS or without hemorrhage, unspecified trimester (principal); Z3A.00 Weeks of gestation of pregnancy not specified
CPT/HCPCS: 76816

== ENCOUNTER 2016-12-09 14:09 | Outpatient (CLI) | payer OTHER, MEDICAID ==
[2016-12-09] VITALS (12 sets, daily range): BP systolic 118–143; BP diastolic 68–85
[~2016-12-09] VITALS: Ht 165.1 cm; Wt 78.0 kg
[2016-12-09 14:49] LABS: BILIRUBIN,URINE NEGATIVE (NEGATIVE); KETONES,URINE 2+ (NEGATIVE); LEUKOCYTE ESTERASE ,URINE 3+ (NEGATIVE); NITRITE,URINE NEGATIVE (NEGATIVE); PH,URINE 5 (5-9); PROTEIN,URINE 2+ (NEGATIVE); UROBILINOGEN,URINE NORMAL (NORMAL)
[2016-12-09 14:57] LABS: SQUAMOUS EPITHELIAL CELL,UR >50 /HPF
[2016-12-09] MEDS ORDERED: D5 LR IV SOLUTION 1,000 ML IV SCH (16:00)
[2016-12-09] MEDS ORDERED: D5 LR IV SOLUTION 1,000 ML IV ONE (16:13)
--- NOTE | 2016-12-10 16:27 | Physician Query-Final Dx ---
ALONSO COSME 12/10/16 1627: Clinic Account Progress/Dx Physician Query: Please give diagnosis Date of Service Dec 09, 2016 at 14:09 ARPITA BROWN MD 12/20/16 2240: Clinic Account Progress/Dx DIAGNOSIS: Diagnosis 1. IUP at 37 weeks, non labor 2. Uterine irritability ALONSO COSME Dec 10, 2016 16:27 ARPITA BROWN MD Dec 20, 2016 22:40
== END 2016-12-09 20:33 | disposition home or self-care (01) ==
LOC: WSo 14:09 → LDRP 14:10 → WSo 20:33
PROVIDERS: ATTEND Family Medicine
DX: O47.1 False labor at or after 37 completed weeks of gestation (principal); Z3A.37 37 weeks gestation of pregnancy
CPT/HCPCS: 81000; 96360; 96361; 99214

== ENCOUNTER 2016-12-20 21:04 | Inpatient (IN) | payer OTHER, MEDICAID ==
[2016-12-20] VITALS (9 sets, daily range): BP systolic 118–143; BP diastolic 62–98
[~2016-12-20] VITALS: Ht 165.1 cm; Wt 78.0 kg
[2016-12-20] MEDS ORDERED: D5 LR IV SOLUTION 1,000 ML IV ONE (21:13)
[2016-12-20] MEDS ORDERED: OXYTOCIN/NORMAL SALINE 500 ML IV ONE (21:27)
[2016-12-20] MEDS ORDERED: D5 LR IV SOLUTION 1,000 ML IV SCH (21:32)
[2016-12-20] MEDS ORDERED: MEPIVACAINE (CARBOCAINE) 2% 50 ML VIAL ONE (21:41)
[2016-12-20 21:48] LABS: BASOPHILS % (AUTO) 0 % (0-10); EOSINOPHILS # (AUTO) 0.1 10^3/uL (0.0-0.3); EOSINOPHILS % (AUTO) 1 % (0-10); LYMPHOCYTES # (AUTO) 1.9 X 10^3 (1.0-4.0); LYMPHOCYTES % (AUTO) 26 % (12-44); MEAN CORPUSCULAR HEMOGLOBIN 28 PG (25-34); MEAN CORPUSCULAR HGB CONC 33 G/DL (32-36); MEAN CORPUSCULAR VOLUME 87 FL (80-99); MEAN PLATELET VOLUME 11.2 FL (7.4-10.4); MONOCYTES # (AUTO) 0.8 X 10^3 (0.0-1.0); MONOCYTES % (AUTO) 11 % (0-12); NEUTROPHILS # (AUTO) 4.7 X 10^3 (1.8-7.8); NEUTROPHILS % (AUTO) 63 % (42-75); PLATELET COUNT 172 10^3/uL (130-400); WHITE BLOOD COUNT 7.6 10^3/uL (4.3-11.0)
[2016-12-20] MEDS ORDERED: CATHETER FLUSH 10 ML SYR IV SCH (22:00)
--- NOTE | 2016-12-20 22:24 | History & Physical-OB ---
OB - Chief Complaint & HPI Date/Time Date of Admission: Date of Admission: Dec 20, 2016 at 21:17 Time Seen by Provider: 21:45 Chief Complaint/History OB-Reason for Admission/Chief: Onset of Labor Hx : 5 Hx Para: 4 Expected Date of Delivery: Dec 30, 2016 Gestational Age in Weeks: 38 Gestational Age in Days: 4 Admission Nurse Assessment Rev: Yes History of Labs GBS negative Allergies and Home Medications Allergies Coded Allergies: No Known Drug Allergies (Verified , 12/06/07) Home Medications Vit/Iron Fumarate/FA 1 Each Tablet, 1 EACH PO DAILY, (Reported) OB - History Hx of Present Care: Yes Ultrasounds: Normal mid trimester US Obstetrical Complications: None Medical Complications: None Obstetrical History Hx Termination: No Hx Multiple Gestation: No Hx Stillbirth: No Hx Complication: No Hx Induced Hypertens: No Hx Maternal Gestational Diabet: No Delivery History Hx Dystocia: No Hx Large For Gestational Age I: No Hx Small for Gestational Age I: No Hx Section: No Hx Vaginal Delivery Post C-Sec: No Hx Blood Disorders: No Patient Past Medical History no chronic medical problems Social History/Family History Sexually Transmitted Disease: No Immunizations Tetanus Booster (TDap): Less than 5yrs Date of Influenza Vaccine: Jan 13, 2015 OB - Admission Exam Physical Exam Date Seen by Provider: Dec 20, 2016 Time Seen by Provider: 21:45 HEENT: Moist Membranes Heart: Rhythm Normal Lungs: Clear Abdomen: Gravid Cervical Dilatation: 7cm Effacement: 75% Station: -2 Membranes: Intact Heart Rate: 140's Accelerations: Accelerations Present Decelerations: Early Decelerations Short Term Variability: Present Demolition Hammer Operator Variability: Average (6-25) Contractions on Admission: < 5 Minutes Apart Labs Laboratory Tests Test 12/20/16 21:25 Range/Units White Blood Count 7.6 4.3-11.0 10^3/uL Red Blood Count 3.60 L 4.35-5.85 10^6/uL Hemoglobin 10.2 L 11.5-16.0 G/DL Hematocrit 31 L 35-52 % Mean Corpuscular Volume 87 80-99 FL Mean Corpuscular Hemoglobin 28 25-34 PG Mean Corpuscular Hemoglobin Concent 33 32-36 G/DL Red Cell Distribution Width 13.0 10.0-14.5 % Platelet Count 172 130-400 10^3/uL Mean Platelet Volume 11.2 H 7.4-10.4 FL Neutrophils (%) (Auto) 63 42-75 % Lymphocytes (%) (Auto) 26 12-44 % Monocytes (%) (Auto) 11 0-12 % Eosinophils (%) (Auto) 1 0-10 % Basophils (%) (Auto) 0 0-10 % Neutrophils # (Auto) 4.7 1.8-7.8 X 10^3 Lymphocytes # (Auto) 1.9 1.0-4.0 X 10^3 Monocytes # (Auto) 0.8 0.0-1.0 X 10^3 Eosinophils # (Auto) 0.1 0.0-0.3 10^3/uL Basophils # (Auto) 0.0 0.0-0.1 10^3/uL OB - Assessment/Plan/Diagnosis Assessment Assessment: active labor (at 38w4d) Plan Plan: Other (labor managment) Induction Method: AROM Other Plan doesn't desire epidural ARPITA BROWN MD Dec 20, 2016 22:24
[2016-12-20] MEDS ORDERED: OXYTOCIN/NORMAL SALINE 500 ML IV SCH (22:28)
--- NOTE | 2016-12-20 22:28 | OB Labor & Delivery Record ---
L&D History Date of Service Date of Service: Dec 20, 2016 History Expected Date of Delivery: Dec 30, 2016 Gestational Age in Weeks: 38 Hx : 5 Hx Para: 4 Complications Events: Routine care Operative Indications (Cesarea: N/A-Vaginal Delivery Intrapartal Events: None L&D Stage1 Stage One Onset of Labor - Date: Dec 20, 2016 Onset of Labor - Time: 18:00 Monitors and Tracing Monitor Mode: External Monitor Accelerations: Uniform Monitor Decelerations: Variable Special Education Preschool Teacher Variability: Average (6-10) Short Term Variability: Present Presentation: Vertex Signs of Distress by FHT Signs of Distress no Rupture of Membranes Spontaneous Ruture of Membrane: No Amniotic Membrane Rupture Time: 21:50 Amniotic Membrane Fluid Desc.: Clear L&D Stage2 Stage Two Stage II Date: Dec 20, 2016 Stage II Time: 22:04 Monitors and Tracing Monitor Mode: External Monitor Accelerations: Uniform Monitor Decelerations: Prolonged Special Education Preschool Teacher Variability: Average (6-10) Position: Left Occiput Anterior Presentation: Vertex Signs of Distress by FHT Signs of Distress no Cord Descript/Complications Cord Vessel Description: 3 Vessels Delivery Type Infant Delivery Method: Spontaneous Vaginal Episiotomy/Perineal Laceration Laceraction(s)/Extensions: No Condition of Infant Delivery 1 minute Comment: 8 5 minute Comment: 9 Condition of Condition of : Living Exam: No Observed Abnormalities Resuscitation Resuscitation: N/A - Spontaneous Resp L&D Stage3 Stage Three Stage III Date: Dec 20, 2016 Stage III Time: 22:07 Pictocin Pitocin ml/hr: 125 Placenta Delivery Placenta Delivery: Spontaneous Delivery Summary Summary Vaginal blood loss >500ml: No 200 Condition of Delivery Examined: Cervix Examined Post Hemorrhage: No ARPITA BROWN MD Dec 20, 2016 22:28
[2016-12-20] MEDS ORDERED: MEASLES,MUMPS,RUBELLA 1 EA INJ SQ ONE (22:30)
[2016-12-20] MEDS ORDERED: WITCH HAZEL(TUCKS) 40 EA JAR TOP PRN (22:30)
[2016-12-20] MEDS ORDERED: TETANUS,DIPTH,PERTUSS P/F (BOOSTRIX) 0.5 ML VIAL IM ONE (22:30)
[2016-12-20] MEDS ORDERED: BENZOCAINE/MENTHOL (DERMOPLAST) 56 ML CAN TP PRN (22:30)
[2016-12-20] MEDS ORDERED: HYDROcodone/APAP 5 MG/325 MG (LORTAB) TAB PO PRN (22:30)
--- NOTE | 2016-12-20 22:30 | OB Labor & Delivery Record ---
L&D History Date of Service Date of Service: Dec 20, 2016 History Expected Date of Delivery: Dec 30, 2016 Gestational Age in Weeks: 38 Hx : 5 Hx Para: 4 Complications Events: Routine care Operative Indications (Cesarea: N/A-Vaginal Delivery Intrapartal Events: None L&D Stage1 Stage One Onset of Labor - Date: Dec 20, 2016 Onset of Labor - Time: 18:00 Monitors and Tracing Monitor Mode: External Monitor Accelerations: Uniform Monitor Decelerations: Variable Station: -3 Longterm Variability: Average (6-10) Short Term Variability: Present Presentation: Vertex Signs of Distress by FHT Signs of Distress no Rupture of Membranes Spontaneous Ruture of Membrane: No Amniotic Membrane Rupture Time: 21:50 Amniotic Membrane Fluid Desc.: Clear L&D Stage2 Stage Two Stage II Date: Dec 20, 2016 Stage II Time: 22:04 Monitors and Tracing Monitor Mode: External Monitor Accelerations: Uniform Proposal Manager Writer Variability: Average (6-10) Short Term Variability: Present Position: Left Occiput Anterior ARPITA BROWN MD Dec 20, 2016 22:30
[2016-12-21] VITALS (9 sets, daily range): BP systolic 112–136; BP diastolic 61–91
[2016-12-21] MEDS: IBUPROFEN 600 MG (MOTRIN) TAB PO SCH ×4 (00:28→18:25)
[2016-12-21] MEDS ORDERED: CATHETER FLUSH 10 ML SYR IV SCH (06:00)
[2016-12-21 06:39] LABS: BASOPHILS % (AUTO) 0 % (0-10); EOSINOPHILS # (AUTO) 0.1 10^3/uL (0.0-0.3); EOSINOPHILS % (AUTO) 1 % (0-10); LYMPHOCYTES # (AUTO) 2.4 X 10^3 (1.0-4.0); LYMPHOCYTES % (AUTO) 23 % (12-44); MEAN CORPUSCULAR HEMOGLOBIN 28 PG (25-34); MEAN CORPUSCULAR HGB CONC 32 G/DL (32-36); MEAN CORPUSCULAR VOLUME 87 FL (80-99); MONOCYTES % (AUTO) 10 % (0-12); NEUTROPHILS # (AUTO) 6.9 X 10^3 (1.8-7.8); NEUTROPHILS % (AUTO) 67 % (42-75); PLATELET COUNT 160 10^3/uL (130-400); RED BLOOD COUNT 3.57 10^6/uL (4.35-5.85); WHITE BLOOD COUNT 10.3 10^3/uL (4.3-11.0)
[2016-12-21] MEDS: PRENATAL VITAMIN 1 EA TAB PO SCH (08:55)
[2016-12-22 00:40] VITALS: BP 129/78
[2016-12-22] MEDS: IBUPROFEN 600 MG (MOTRIN) TAB PO SCH ×2 (00:45→06:22)
[2016-12-22 06:20] VITALS: BP 125/84
--- NOTE | 2016-12-22 07:26 | Discharge Summary ---
Diagnosis/Chief Complaint Date of Admission Dec 20, 2016 at 21:17 Date of Discharge December 22, 2016 Discharge Date: Dec 22, 2016 Discharge Time: 07:30 Admission Diagnosis Admission Diagnosis 1. Intrauterine at term 38 weeks 4 days gestation 2. Anemiairon deficiency Discharge Diagnosis 1. Intrauterine at term 38 weeks 4 days gestation 2. Anemia iron deficiency due to Reason Hospital Visit 26-year-old 5 now term 5 female who initially presented to labor and delivery during the evening of December 20, 2016 in labor. Upon presentation she was noted to be 7 cm dilated. Her due date is noted to be December 30, 2016. Her care was essentially unremarkable. Her GBS status is negative. Discharge Summary-OBS Procedures 1. Spontaneous vaginal delivery Discharge Physical Examination Allergies: Coded Allergies: No Known Drug Allergies (Verified , 12/06/07) Vitals & I&Os Vital Signs Date Time Temp Pulse Resp B/P (MAP) Pulse Ox O2 Delivery O2 Flow Rate FiO2 12/22/16 06:20 97.9 63 18 125/84 98 Room Air General Appearance: No Acute Distress HEENT: Mucous Memb Moist/[place] Respiratory: Clear to Auscultation Cardiovascular: Regular Rate Abdominal: Soft (with uterus firm) Skin: No Rashes Hospital Course following presentation on December 20, 2016 she underwent amniotomy after formal admission. With amniotomy performed she quickly went on to completion and delivered a term viable female. received Apgars of 8 at 1 minute and 9 at 5 minutes. There was no episiotomy and she had no perineal tears or lacerations. Her EBL was noted to be at 200 mL. See labor and delivery summary for full details. Following delivery patient underwent routine care orders. She had no complications during the remainder of hospital stay. Her hemoglobin on admission was 10.2 with a hemoglobin of 9.5 the morning after on 12/21/2016. Patient was ambulatory and without any complaints. She had no shortness of breath or chest pain. She was felt ready for dismissal during the morning of December 22, 2016. She had all questions answered. She will follow up in 6 weeks. Discharge Instructions to patient/family Please see electronic discharge instructions given to patient. Discharge Medications Reviewed and agree with Discharge Medication list on patient's Discharge Instruction sheet Clinical Quality Measures DVT/VTE Risk/Contraindication: Risk Factor Score Per Nursin RFS Level Per Nursing on Admit: 1=Low/No VTE PPX ARPITA BROWN MD Dec 22, 2016 07:26
--- NOTE | 2016-12-22 07:28 | Discharge Inst-Women's Service ---
Discharge Inst-Women's Serv Depart Medication/Instructions New, Converted or Re-Newed RX: Other (no scripts) Consults/Follow Up Additional Follow Up: Yes (with Dr. Brown in 6 weeks.) Activity Activity: Activity as Tolerated Driving Instructions: You May Drive Nothing Inside Vagina: No [place] (for 6 weeks) Diet Discharge Diet: Regular Diet Return to The Hospital For: as below Symptoms to Report to : Bleeding Excessive, Pain Increased, Fever Over 101 Degrees F, Vaginal Discharge Foul For Any Problems or Questions: Contact Your Physician ARPITA BROWN MD Dec 22, 2016 07:28
[2016-12-22 09:00] VITALS: BP 126/73
[2016-12-22] MEDS: PRENATAL VITAMIN 1 EA TAB PO SCH (09:13)
[2016-12-22] MEDS ORDERED: MEASLES,MUMPS,RUBELLA 1 EA INJ ONE (09:16)
[2016-12-22] MEDS ORDERED: TETANUS,DIPTH,PERTUSS P/F (BOOSTRIX) 0.5 ML VIAL IM ONE (09:16)
[2016-12-22 11:40] VITALS: BP 126/73
== END 2016-12-22 11:40 | disposition home or self-care (01) | DRG 775 ==
LOC: WSo 21:04 → LDRP 21:05 → WSo 21:17 → LDRP 12-21 00:30
PROVIDERS: ADMIT Family Medicine; ATTEND Family Medicine
PROC: 10E0XZZ Delivery of Products of Conception, External Approach (ICD-10-PCS; principal; 2016-12-20)
DX: O99.03 Anemia complicating the puerperium (principal); D50.9 Iron deficiency anemia, unspecified; Z3A.38 38 weeks gestation of pregnancy; Z37.0 Single live birth; Z23 Encounter for immunization
CPT/HCPCS: 36415; 85025; 86850; 86900; 86901; 90707; 90715

== ENCOUNTER 2018-04-18 06:01 | Inpatient (IN) | payer MEDICAID ==
[2018-04-18] VITALS (31 sets, daily range): BP systolic 103–132; BP diastolic 61–87
[~2018-04-18] VITALS: Ht 165.1 cm; Wt 84.4 kg
[~2018-04-18 06:01] MED LIST changes: +METR-197 PO; -METR500T21 PO
--- NOTE | 2018-04-18 06:10 | NUR ---
ANKUSH MACHADO presented to unit via ambulatory from ED, accompanied by s/o, for INDUCTION. ANKUSH MACHADO weighed, gowned, voided, and to bed. EFHM and TOCO applied, VS taken. ANKUSH MACHADO oriented to bed controls, call light, TV, heat, and A/C controls.
--- OUTSIDE RECORDS SUMMARY | 2018-04-18 06:10 | XMS REPORT ---
Author Author LOI CARDOSO [facility] Address [address] [place] [address] Care Team Providers Care Scientist/Engineer Name Role Phone LOI CARDOSO Unavailable PROBLEMS Unknown Problems ALLERGIES Unknown Allergies SOCIAL HISTORY No smoking Hx information available PLAN OF CARE VITAL SIGNS MEDICATIONS Unknown Medications RESULTS Name Result Date Reference Range TEST, URINE (IN HOUSE) 2016-05-08 RESULTS POSITIVE Lot # [id number] Control + Exp date PROCEDURES Procedure Date Ordered Related Diagnosis Body Site URINE TEST May 08, 2016 IMMUNIZATIONS No Known Immunizations
--- OUTSIDE RECORDS SUMMARY | 2018-04-18 06:12 | XMS REPORT | Continuity of Care Document ---
Author Author [facility] of [facility] of [facility] Address Unknown Phone Unavailable Allergies Active Description Code Type Severity Reaction Onset Reported/Identified Relationship to Patient Clinical Status Yes No Known Drug Allergies [id number] Drug Allergy Unknown N/A 12/06/2007 Medications There is no data. 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 02/17/2010 Ot 528.9 ORAL SOFT TISSUE DIS NEC 02/19/2010 Ot 276.51 DEHYDRATION 02/19/2010 Ot 523.10 CHRONIC GINGIVITIS, PLAQUE INDUCED 02/19/2010 Ot 599.0 URIN TRACT INFECTION NOS 02/19/2010 Ot 780.60 FEVER, UNSPECIFIED 02/19/2010 Ot 787.03 VOMITING ALONE 10/15/2010 LOI CARDOSO DO V72.41 TEST NEGATIVE RESULT 10/15/2010 RADHATIARA BOO, YENNY A V72.41 TEST NEGATIVE RESULT 10/15/2010 RADHATIARA BOO, YENNY A V72.41 TEST NEGATIVE RESULT 10/15/2010 RADHA COMMUNITY RELATIONS REPRESENTATIVE, YENNY A V72.41 TEST NEGATIVE RESULT 10/15/2010 RADHA COMMUNITY RELATIONS REPRESENTATIVE, YENNY A V72.41 TEST NEGATIVE RESULT 10/15/2010 RADHA COMMUNITY RELATIONS REPRESENTATIVE, YENNY A V72.41 TEST NEGATIVE RESULT 10/15/2010 RADHA COMMUNITY RELATIONS REPRESENTATIVE, YENNY A V72.41 TEST NEGATIVE RESULT 10/15/2010 YAMILEX BUI DDS V72.41 TEST NEGATIVE RESULT 10/15/2010 RADHATIARA BOO, YENNY A V72.41 TEST NEGATIVE RESULT 10/15/2010 LOI CARDOSO DO V72.41 TEST NEGATIVE RESULT 10/15/2010 LOI CARDOSO DO V72.41 TEST NEGATIVE RESULT 10/15/2010 STEPHANIE WARE, ARPITA Oseguera V72.41 TEST NEGATIVE RESULT 10/15/2010 LOI CARDOSO DO V72.41 TEST NEGATIVE RESULT 10/15/2010 ARPITA BROWN MD V72.41 TEST NEGATIVE RESULT 10/15/2010 ARPITA BROWN MD V72.41 TEST NEGATIVE RESULT 10/15/2010 RADHAYENNY Ayala APRN V72.41 TEST NEGATIVE RESULT 10/15/2010 YENNY GARCIA APRN V72.41 TEST NEGATIVE RESULT 10/15/2010 LOI CARDOSO DO V72.41 TEST NEGATIVE RESULT 10/15/2010 RADHAYENNY Ayala APRN A V72.41 TEST NEGATIVE RESULT 04/16/2011 Ot 671.13 VARICOSE VULVA-ANTEPART 06/18/2011 Ot 664.01 DEL W 1 DEG LACERAT-DEL 06/18/2011 Ot V04.81 ND FOR PROPHYLACTIC VACCIN AND INOCULATI 06/18/2011 Ot V27.0 DELIVER- SINGLE LIVEBORN 06/07/2012 LOI CARDOSO DO 599.0 URINARY TRACT INFECTION 06/07/2012 LOI CARDOSO DO 788.41 URINARY FREQUENCY 06/07/2012 LOI CARDOSO DO 789.09 ABDOMINAL PAIN OTHER SPECIFIED SITE 06/07/2012 LOI CARDOSO DO V25.42 CONTRACEPTION SURVEILLANCE (IUD) 06/07/2012 LOI CARDOSO DO V74.5 STD SCREEN 06/07/2012 YENNY GARCIA APRN A 599.0 URINARY TRACT INFECTION 06/07/2012 YENNY GARCIA APRN A 788.41 URINARY FREQUENCY 06/07/2012 YENNY GARCIA APRN A 789.09 ABDOMINAL PAIN OTHER SPECIFIED SITE 06/07/2012 YENNY GARCIA APRN A V25.42 CONTRACEPTION SURVEILLANCE (IUD) 06/07/2012 YENNY GARCIA APRN V74.5 STD SCREEN 06/07/2012 YENNY GARCIA APRN A 599.0 URINARY TRACT INFECTION 06/07/2012 YENNY GARCIA APRN A 788.41 URINARY FREQUENCY 06/07/2012 YENNY GARCIA [...] APRN A 599.0 URINARY TRACT INFECTION 06/07/2012 YENNY GARCIA APRN A 788.41 URINARY FREQUENCY 06/07/2012 YENNY GARCIA APRN A 789.09 ABDOMINAL PAIN OTHER SPECIFIED SITE 06/07/2012 YENNY GARCIA APRN A V25.42 CONTRACEPTION SURVEILLANCE (IUD) 06/07/2012 YENNY GARCIA APRN A V74.5 STD SCREEN 06/07/2012 YENNY GARCIA APRN A 599.0 URINARY TRACT INFECTION 06/07/2012 YENNY GARCIA APRN A 788.41 URINARY FREQUENCY 06/07/2012 YENNY GARCIA [...] ABDOMINAL PAIN OTHER SPECIFIED SITE 06/07/2012 RAMYA CASTELANSYAMILEX V25.42 CONTRACEPTION SURVEILLANCE (IUD) 06/07/2012 RAMYA CASTELANSYAMILEX V74.5 STD SCREEN 06/07/2012 MEGHA GARCIA APRNIDI A 599.0 URINARY TRACT INFECTION 06/07/2012 RADHA BOO, YENNY A 788.41 URINARY FREQUENCY 06/07/2012 RADHA BOO, YENNY A 789.09 ABDOMINAL PAIN OTHER SPECIFIED SITE 06/07/2012 RADHA BOO, YENNY A V25.42 CONTRACEPTION SURVEILLANCE (IUD) 06/07/2012 [...] BROWN MD V74.5 STD SCREEN 06/07/2012 CARDOSO DO, LOI K 599.0 URINARY TRACT INFECTION 06/07/2012 CARDOSO DO, LOI K 788.41 URINARY FREQUENCY 06/07/2012 CARDOSO DO LOI K 789.09 ABDOMINAL PAIN OTHER SPECIFIED SITE 06/07/2012 LOI CARDOSO DO V25.42 CONTRACEPTION SURVEILLANCE (IUD) 06/07/2012 LOI CARDOSO DO K V74.5 STD SCREEN 06/07/2012 ARPITA BROWN [...] ARPITA BROWN MD V74.5 STD SCREEN 06/07/2012 RADHA BOO, YENNY A 599.0 URINARY TRACT INFECTION 06/07/2012 RADHA BOO, YENNY A 788.41 URINARY FREQUENCY 06/07/2012 RADHA BOO YENNY A 789.09 ABDOMINAL PAIN OTHER SPECIFIED SITE 06/07/2012 RADHA BOO YENNY A V25.42 CONTRACEPTION SURVEILLANCE (IUD) 06/07/2012 RADHA BOO, YENNY A V74.5 STD SCREEN 06/07/2012 RADHA BOO, YENNY A 599.0 URINARY TRACT INFECTION 06/07/2012 RADHA CHOPRAN, YENNY A 788.41 URINARY FREQUENCY 06/07/2012 RADHA CHOPRAN, YENNY A 789.09 ABDOMINAL PAIN OTHER SPECIFIED SITE 06/07/2012 RADHA BOO YENNY A V25.42 CONTRACEPTION SURVEILLANCE (IUD) 06/07/2012 RADHA BOO, YENNY A V74.5 STD SCREEN 06/07/2012 LOI CARDOSO DO K 599.0 URINARY TRACT INFECTION 06/07/2012 LOI CARDOSO DO 788.41 URINARY FREQUENCY 06/07/2012 LOI CARDOSO DO K 789.09 ABDOMINAL PAIN OTHER SPECIFIED SITE 06/07/2012 LOI CARDOSO DO K V25.42 CONTRACEPTION SURVEILLANCE (IUD) 06/07/2012 LOI CARDOSO DO K V74.5 STD SCREEN 06/07/2012 MEGHA GARCIA APRNIDI A 599.0 URINARY TRACT INFECTION 06/07/2012 MEGHA GARCIA APRNIDI A 788.41 URINARY FREQUENCY 06/07/2012 MEGHA GARCIA APRNIDI A 789.09 ABDOMINAL PAIN OTHER SPECIFIED SITE 06/07/2012 MEGHA GARCIA APRNIDI A V25.42 CONTRACEPTION SURVEILLANCE (IUD) 06/07/2012 RADHA BOO YENNY A V74.5 STD SCREEN 12/28/2012 RADHA BOO YENNY A V25.01 CONTRACEPTION [...] DO V25.01 CONTRACEPTION - ORAL CONTRACEPTION 12/28/2012 ARPITA BROWN MD V25.01 CONTRACEPTION - ORAL CONTRACEPTION 12/28/2012 LOI CARDOSO DO V25.01 CONTRACEPTION - ORAL CONTRACEPTION 12/28/2012 ARPITA BROWN MD V25.01 CONTRACEPTION - ORAL CONTRACEPTION 12/28/2012 ARPITA BROWN MD V25.01 CONTRACEPTION - ORAL CONTRACEPTION 12/28/2012 RADHA BOO YENNY A V25.01 CONTRACEPTION - ORAL CONTRACEPTION 12/28/2012 RADHA BOO YENNY A V25.01 CONTRACEPTION - ORAL CONTRACEPTION 12/28/2012 LOI CARDOSO DO V25.01 CONTRACEPTION - ORAL CONTRACEPTION 12/28/2012 RADHAYENNY Ayala APRN A V25.01 CONTRACEPTION - ORAL CONTRACEPTION 01/03/2013 IVON ZEE APRN Ot 842.00 SPRAIN OF WRIST NOS 01/03/2013 IVON ZEE APRN Ot 959.3 ELB/FOREARM/WRST INJ NOS 01/03/2013 IVON ZEE APRN Ot E000.8 OTHER EXTERNAL CAUSE STATUS 01/03/2013 IVON ZEE APRN Ot E888.9 FALL NOS 04/19/2013 RADHA APRN, YENNY A V72.42 TEST POSITIVE RESULT 04/19/2013 RADHATIARA BOO YENNY A V76.10 BREAST CANCER SCREENING 04/19/2013 RADHATIARA BOO, YENNY A V76.2 CERVICAL CANCER SCREENING (PAP SMEAR) 04/19/2013 RADHALucy BOO YENNY A V72.42 TEST POSITIVE RESULT 04/19/2013 RADHA BOO YENNY A V76.10 BREAST CANCER SCREENING 04/19/2013 RADHA APRN, YENNY A V76.2 CERVICAL CANCER SCREENING (PAP SMEAR) 04/19/2013 RADHA APRN, YENNY A V72.42 TEST POSITIVE RESULT 04/19/2013 RADHA APRN, YENNY A V76.10 BREAST CANCER SCREENING 04/19/2013 RADHA APRN, YENNY A V76.2 CERVICAL CANCER SCREENING (PAP SMEAR) 04/19/2013 RADHA APRN, YENNY A V72.42 TEST POSITIVE RESULT 04/19/2013 RADHA APRN, YENNY A V76.10 BREAST CANCER SCREENING 04/19/2013 RADHA APRN, YENNY A V76.2 CERVICAL CANCER SCREENING (PAP SMEAR) 04/19/2013 RADHA APRN, YENNY A V72.42 TEST POSITIVE RESULT 04/19/2013 RADHA APRN, YENNY A V76.10 BREAST CANCER SCREENING 04/19/2013 RADHA BOO, YENNY A V76.2 CERVICAL CANCER SCREENING (PAP SMEAR) 04/19/2013 YAMILEX BUI DDS V72.42 TEST POSITIVE RESULT 04/19/2013 YAMILEX BUI DDS V76.10 BREAST CANCER SCREENING 04/19/2013 RAMYA CASTELANS, YAMILEX Oseguera V76.2 CERVICAL CANCER SCREENING (PAP SMEAR) 04/19/2013 YENNY GARCIA APRN V72.42 TEST POSITIVE RESULT 04/19/2013 YENNY GARCIA APRN V76.10 BREAST CANCER SCREENING 04/19/2013 YENNY GARCIA APRN V76.2 CERVICAL CANCER SCREENING (PAP SMEAR) 04/19/2013 LOI CARDOSO DO V72.42 TEST POSITIVE RESULT 04/19/2013 LOI CARDOSO DO K V76.10 BREAST CANCER SCREENING 04/19/2013 ROBBY CARDOSO DOA K V76.2 CERVICAL CANCER SCREENING (PAP SMEAR) 04/19/2013 ROBBY CARDOSO DOA Desiree V72.42 TEST POSITIVE RESULT 04/19/2013 ROBBY CARDOSO DOA K V76.10 BREAST CANCER SCREENING 04/19/2013 LOI CARDOSO DO V76.2 CERVICAL CANCER SCREENING (PAP SMEAR) 04/19/2013 ARPITA BROWN MD V72.42 TEST POSITIVE RESULT 04/19/2013 ARPITA BROWN MD V76.10 BREAST CANCER SCREENING 04/19/2013 ARPITA BROWN MD V76.2 CERVICAL CANCER SCREENING (PAP SMEAR) 04/19/2013 LOI CARDOSO DO K V72.42 TEST POSITIVE RESULT 04/19/2013 LOI CARDOSO DO K V76.10 BREAST CANCER SCREENING 04/19/2013 LOI CARDOSO DO V76.2 CERVICAL CANCER SCREENING (PAP SMEAR) 04/19/2013 [...] GARCIA APRN V72.42 TEST POSITIVE RESULT 04/19/2013 MEGHA GARCIA APRNIDI A V76.10 BREAST CANCER SCREENING 04/19/2013 RADHA [...] A V76.10 BREAST CANCER SCREENING 04/19/2013 RADHA BOO, YENNY A V76.2 CERVICAL CANCER SCREENING (PAP SMEAR) 04/24/2013 RADHA CHOPRAN, YENNY A 640.00 THREATENED 04/24/2013 RADHA COMMUNITY RELATIONS REPRESENTATIVE, YENNY A 640.00 THREATENED 04/24/2013 RADHA COMMUNITY RELATIONS REPRESENTATIVE, YENNY A 640.00 THREATENED 04/24/2013 RADHA COMMUNITY RELATIONS REPRESENTATIVE, YENNY A 640.00 THREATENED 04/24/2013 RADHA COMMUNITY RELATIONS REPRESENTATIVE, YENNY A 640.00 THREATENED 04/24/2013 YAMILEX BUI DDS 640.00 THREATENED 04/24/2013 RADHA COMMUNITY RELATIONS REPRESENTATIVE, YENNY A 640.00 THREATENED 04/24/2013 ROBBY CARDOSO DOA K 640.00 THREATENED 04/24/2013 CARDOSO , LOI K 640.00 THREATENED 04/24/2013 STEPHANIE WARE, ARPITA Oseguera 640.00 THREATENED 04/24/2013 LOI CARDOSO DO K 640.00 THREATENED 04/24/2013 STEPHANIE WARE, ARPITA Oseguera 640.00 THREATENED 04/24/2013 ARPITA BROWN MD 640.00 THREATENED 04/24/2013 RADHA COMMUNITY RELATIONS REPRESENTATIVE, YENNY A 640.00 THREATENED 04/24/2013 RADHA COMMUNITY RELATIONS REPRESENTATIVE, YENNY A 640.00 THREATENED 04/24/2013 CARDOSO DO, LOI K 640.00 THREATENED 04/24/2013 RADHA COMMUNITY RELATIONS REPRESENTATIVE, YENNY A 640.00 THREATENED 05/30/2013 RADHA COMMUNITY RELATIONS REPRESENTATIVE, YENNY A V04.81 FLU SHOT 05/30/2013 RADHA COMMUNITY RELATIONS REPRESENTATIVE, YENNY A V22.1 , NORMAL OTHER 05/30/2013 CARDOSO DO, LOI K V04.81 FLU SHOT 05/30/2013 CARDOSO DO, LOI K V22.1 , NORMAL OTHER 05/30/2013 CARDOSO DO, LOI K V04.81 FLU SHOT 05/30/2013 CARDOSO DO, LOI K V22.1 , NORMAL OTHER 05/30/2013 STEPHANIE WARE, ARPITA Oseguera V04.81 FLU SHOT 05/30/2013 ARPITA BROWN MD V22.1 , NORMAL OTHER 05/30/2013 CARDOSO DO, LOI K V04.81 FLU SHOT 05/30/2013 CARDOSO DO, LOI K V22.1 , NORMAL OTHER 05/30/2013 STEPHANIE WARE, ARPITA Oseguera V04.81 FLU SHOT 05/30/2013 ARPITA BROWN MD V22.1 , NORMAL OTHER 05/30/2013 ARPITA BROWN MD V04.81 FLU SHOT 05/30/2013 ARPITA BROWN MD V22.1 , NORMAL OTHER 05/30/2013 RADHA COMMUNITY RELATIONS REPRESENTATIVE, YENNY A V04.81 FLU SHOT 05/30/2013 RADAH COMMUNITY RELATIONS REPRESENTATIVE, YENNY A V22.1 , NORMAL OTHER 05/30/2013 RADHA COMMUNITY RELATIONS REPRESENTATIVE, YENNY A V04.81 FLU SHOT 05/30/2013 RADHA COMMUNITY RELATIONS REPRESENTATIVE, YENNY A V22.1 , NORMAL OTHER 05/30/2013 CARDOSO DO, LOI K V04.81 FLU SHOT 05/30/2013 CARDOSO DO, LOI K V22.1 , NORMAL OTHER 05/30/2013 RADHA COMMUNITY RELATIONS REPRESENTATIVE, YENNY A V04.81 FLU SHOT 05/30/2013 RADHA COMMUNITY RELATIONS REPRESENTATIVE, YENNY A V22.1 , NORMAL OTHER 08/21/2013 CARDOSO DO, LOI K Ot V22.1 [facility] NORMAL PREG 11/01/2013 STEPHANIE WARE, ARPITA Oseguera V06.1 TDAP DX 11/01/2013 ARPITA BROWN MD V06.1 TDAP DX 11/01/2013 YENNY GARCIA APRN V06.1 TDAP DX 11/01/2013 YENNY GARCIA APRN V06.1 TDAP DX 11/01/2013 LOI CARDOSO DO V06.1 TDAP DX 11/01/2013 YENNY GARCIA APRN V06.1 TDAP DX 11/24/2013 STEPHANIE WARE, ARPITA Oseguera Ot 644.03 THRT DOUGLAS LABOR-ANTEPART 12/08/2013 ARPITA BROWN MD Ot 650 NORMAL DELIVERY 12/08/2013 ARPITA BROWN MD Ot V06.1 [id number], COMBINED [ 12/08/2013 ARPITA BROWN MD Ot V06.4 [id number] 12/08/2013 ARPITA BROWN MD Ot V27.0 DELIVER-SINGLE [...] GARCIA APRN V25.11 IUD INSERTION 06/05/2014 JANAE MARCMU LOI Ramírez 460 ACUTE NASOPHARYNGITIS (COMMON COLD) 06/05/2014 YENNY GARCIA APRN 460 ACUTE NASOPHARYNGITIS (COMMON COLD) 07/31/2014 YENNY GARCIA APRN 789.00 ABDOMINAL PAIN UNSPECIFIED SITE 01/12/2015 Ot 649.63 01/12/2015 Ot 649.53 01/12/2015 YENNY GARCIA APRN Ot V28.89 01/12/2015 YENNY GARCIA COMMUNITY RELATIONS REPRESENTATIVE Ot V28.89 01/12/2015 YENNY GARCIA APRN Ot 640.03 01/12/2015 ARPITA BROWN MD Ot V22.1 01/12/2015 AMIRAH WARE, FLORENCIA Zelaya Ot B37.3 CANDIDIASIS OF VULVA AND VAGINA 01/12/2015 AMIRAH WARE, FLORENCIA Zelaya Ot B96.89 OTH BACTERIAL AGENTS THE CAUSE OF DIS 01/12/2015 FLORENCIA MACARIO MD Ot N76.0 ACUTE VAGINITIS 01/12/2015 AMIRAH WARE, FLORENCIA Zelaya Ot R10.30 LOWER ABDOMINAL PAIN, UNSPECIFIED 01/12/2015 Ot 649.63 01/12/2015 Ot 649.53 01/12/2015 YENNY GARCIA APRN Ot V28.89 01/12/2015 YENYN GARCIA APRN Ot V28.89 01/12/2015 YENNY GARCIA APRN Ot 640.03 01/12/2015 ARPITA BROWN MD Ot V22.1 01/12/2015 Ot 649.63 01/12/2015 Ot 649.53 01/12/2015 YENNY GARCIA COMMUNITY RELATIONS REPRESENTATIVE Ot V28.89 01/12/2015 YENNY GARCIA COMMUNITY RELATIONS REPRESENTATIVE Ot V28.89 01/12/2015 YENNY GARCIA APRN Ot 640.03 01/12/2015 ARPITA BROWN MD Ot V22.1 02/19/2015 Ot 649.63 02/19/2015 Ot 649.53 02/19/2015 YENNY GARCIA COMMUNITY RELATIONS REPRESENTATIVE Ot V28.89 02/19/2015 YENNY GARCIA COMMUNITY RELATIONS REPRESENTATIVE Ot V28.89 02/19/2015 RADHAYENNY COMMUNITY RELATIONS REPRESENTATIVE Ot 640.03 02/19/2015 STEPHANIE WARE, ARPITA Oseguera Ot V22.1 02/19/2015 Ot 649.63 02/19/2015 Ot 649.53 02/19/2015 YENNY GARCIA COMMUNITY RELATIONS REPRESENTATIVE Ot V28.89 02/19/2015 YENNY GARCIA COMMUNITY RELATIONS REPRESENTATIVE Ot V28.89 02/19/2015 YENNY GARCIA COMMUNITY RELATIONS REPRESENTATIVE Ot 640.03 02/19/2015 STEPHANIE WARE, ARPITA Oseguera Ot V22.1 04/25/2015 Ot 649.63 04/25/2015 Ot 649.53 04/25/2015 YENNY GARCIA COMMUNITY RELATIONS REPRESENTATIVE Ot V28.89 04/25/2015 RADHAYENNY COMMUNITY RELATIONS REPRESENTATIVE Ot V28.89 04/25/2015 RADHAYENNY COMMUNITY RELATIONS REPRESENTATIVE Ot 640.03 04/25/2015 STEPHANIE WARE, ARPITA Oseguera Ot V22.1 04/30/2015 STEPHANIE WARE, ARPITA Oseguera Ot Z36 04/30/2015 STEPHANIE WARE, ARPITA Oseguera Ot Z3A.09 04/30/2015 STEPHANIE WARE, ARPITA Oseguera Ot Z36 04/30/2015 STEPHANIE WARE, ARPITA Oseguera Ot Z3A.09 05/22/2015 STEPHANIE WARE, ARPITA Oseguera Ot Z36 05/22/2015 STEPHANIE WARE, ARPITA Oseguera Ot Z3A.09 06/05/2015 STEPHANIE WARE, ARPITA Oseguera Ot O20.9 06/05/2015 STEPHANIE WARE, ARPITA Oseguera Ot Z3A.14 06/27/2015 Ot 649.63 06/27/2015 Ot 649.53 06/27/2015 RADHAYENNY COMMUNITY RELATIONS REPRESENTATIVE Ot V28.89 06/27/2015 RADHAYENNY COMMUNITY RELATIONS REPRESENTATIVE Ot V28.89 06/27/2015 RADHAYENNY COMMUNITY RELATIONS REPRESENTATIVE Ot 640.03 06/27/2015 STEPHANIE WARE, ARPITA Oseguera Ot V22.1 06/27/2015 ARPITA BROWN MD, Ot O20.9 06/27/2015 ARPITA BROWN MD, Ot Z3A.14 06/27/2015 ARPITA BROWN MD, Ot Z36 06/27/2015 ARPITA BROWN MD, Ot Z3A.09 07/26/2015 Ot 649.63 UTERINE SIZE DATE DISCREPANCY, ANTEPARTU 07/26/2015 Ot 649.53 SPOTTING COMP , ANTEPARTUM COND 07/26/2015 YENNY GARCIA APRN Ot V28.89 OTHER SPECIFIED SCREENING 07/26/2015 YENNY GARCIA COMMUNITY RELATIONS REPRESENTATIVE Ot V28.89 OTHER SPECIFIED SCREENING 07/26/2015 YENNY [...] SPOTTING COMP , ANTEPARTUM COND 10/21/2015 YENNY GARICA APRN Ot V28.89 OTHER SPECIFIED SCREENING 10/21/2015 YENNY GARCIA COMMUNITY RELATIONS REPRESENTATIVE Ot V28.89 OTHER SPECIFIED SCREENING 10/21/2015 YENNY GARCIA APRN Ot 640.03 THREATEN ABORT-ANTEPART 10/21/2015 STEPHANIE MD, ARPITA J Ot V22.1 SUPERVIS OTH NORMAL PREG 10/21/2015 [...] DECREASED MOVEMENTS, THIRD TRIMEST 10/27/2015 JOSEPH IBARRA MD Ot R82.99 OTHER ABNORMAL FINDINGS IN URINE 10/27/2015 JOSEPH IBARRA MD Ot Z3A.36 36 WEEKS GESTATION OF 10/28/2015 ARPITA BROWN MD, Ot N94.89 OTH COND ASSOC W FEMALE GENITAL ORGANS A 10/28/2015 ARPITA BROWN MD, Ot Z3A.36 36 WEEKS GESTATION OF 11/07/2015 JOSEPH IBARRA MD Ot O36.8130 DECREASED MOVEMENTS, THIRD TRIMEST 11/07/2015 JOESPH IBARRA MD, Ot Z3A.36 36 WEEKS GESTATION [...] COMP , ANTEPARTUM COND 11/15/2015 YENNY GARCIA APRN Ot V28.89 OTHER SPECIFIED SCREENING 11/15/2015 YENNY GARCIA COMMUNITY RELATIONS REPRESENTATIVE Ot V28.89 OTHER SPECIFIED SCREENING 11/15/2015 YENNY [...] Z37.0 SINGLE LIVE 11/16/2015 ARPITA BROWN MD, Ot3A.39 39 WEEKS GESTATION OF 05/21/2016 Ot 649.63 UTERINE SIZE DATE DISCREPANCY, ANTEPARTU 05/21/2016 Ot 649.53 SPOTTING COMP , ANTEPARTUM COND 05/21/2016 YENNY GARCIA COMMUNITY RELATIONS REPRESENTATIVE Ot V28.89 OTHER SPECIFIED SCREENING 05/21/2016 YENNY GARCIA COMMUNITY RELATIONS REPRESENTATIVE Ot V28.89 OTHER SPECIFIED SCREENING 05/21/2016 YENNY GARCIA COMMUNITY RELATIONS REPRESENTATIVE Ot 640.03 THREATEN ABORT-ANTEPART 05/21/2016 ARPITA BROWN MD, Ot V22.1 SUPERVIS OTH NORMAL PREG 05/21/2016 ARPITA BROWN MD, Ot Z36 ENCOUNTER FOR SCREENING OF MOT 05/21/2016 ARPITA BROWN MD, Ot Z3A.09 9 WEEKS GESTATION OF 05/21/2016 ARPITA BROWN MD, Ot O20.9 HEMORRHAGE IN EARLY , UNSPECIFI 05/21/2016 ARPITA BROWN MD, Ot Z3A.14 14 WEEKS GESTATION OF 05/21/2016 ARPITA BROWN MD, Ot Z36 ENCOUNTER FOR SCREENING OF MOT 05/26/2016 ARPITA BROWN MD, Ot Z36 ENCOUNTER FOR SCREENING OF MOT 05/26/2016 ARPITA BROWN MD, Ot Z3A.01 LESS THAN 8 WEEKS GESTATION OF 06/03/2016 ARPITA BROWN MD, Ot Z36 ENCOUNTER FOR SCREENING OF MOT 06/03/2016 ARPITA BROWN MD, Ot3A.01 LESS THAN 8 WEEKS GESTATION OF 06/26/2016 ARPITA BROWN MD, Ot Z36 ENCOUNTER FOR SCREENING OF MOT 06/26/2016 ARPITA BROWN MD, Ot Z3A.01 LESS THAN 8 WEEKS GESTATION OF 08/06/2016 Ot 649.53 SPOTTING COMP , ANTEPARTUM COND 08/06/2016 YENNY GARCIA APRN Ot V28.89 OTHER SPECIFIED SCREENING 08/06/2016 YENNY GARCIA COMMUNITY RELATIONS REPRESENTATIVE Ot V28.89 OTHER SPECIFIED SCREENING 08/06/2016 YENNY GARCIA APRN Ot 640.03 THREATEN ABORT-ANTEPART 08/06/2016 ARPITA BROWN MD, Ot V22.1 SUPERVIS OTH NORMAL PREG 08/06/2016 ARPITA BROWN MD, Ot Z36 ENCOUNTER FOR SCREENING OF MOT 08/06/2016 ARPITA BROWN MD, Ot Z3A.09 9 WEEKS GESTATION OF 08/06/2016 ARPITA BROWN MD, Ot O20.9 HEMORRHAGE IN EARLY , UNSPECIFI 08/06/2016 ARPITA BROWN MD, Ot Z3A.14 14 WEEKS GESTATION OF 08/06/2016 ARPITA BROWN MD, Ot Z36 ENCOUNTER FOR SCREENING OF MOT 08/06/2016 ARPITA BROWN MD, Ot Z36 ENCOUNTER FOR SCREENING OF MOT 08/06/2016 ARPITA BROWN MD, Ot Z3A.01 LESS THAN 8 WEEKS GESTATION OF 08/06/2016 ARPITA BROWN MD, Ot Z36 ENCOUNTER FOR SCREENING OF MOT 08/06/2016 ARPITA BROWN MD, Ot Z3A.19 19 WEEKS GESTATION OF 08/18/2016 ARPITA BROWN MD, Ot Z36 ENCOUNTER FOR SCREENING OF MOT 08/18/2016 ARPITA BROWN MD, Ot Z3A.19 19 WEEKS GESTATION OF 09/29/2016 YENNY GARCIA APRN Ot V28.89 OTHER SPECIFIED SCREENING 09/29/2016 YENNY GARCIA APRN Ot V28.89 OTHER SPECIFIED SCREENING 09/29/2016 YENNY GARCIA APRN Ot 640.03 THREATEN ABORT-ANTEPART 09/29/2016 ARPITA BROWN MD, Ot V22.1 SUPERVIS OTH NORMAL PREG 09/29/2016 ARPITA BROWN MD, Ot Z36 ENCOUNTER FOR SCREENING OF MOT 09/29/2016 ARPITA BROWN MD, Ot Z3A.09 9 WEEKS GESTATION OF 09/29/2016 ARPITA BROWN MD, Ot O20.9 HEMORRHAGE IN EARLY , UNSPECIFI 09/29/2016 ARPITA BROWN MD, Ot Z3A.14 14 WEEKS GESTATION OF 09/29/2016 ARPITA BROWN MD, Ot Z36 ENCOUNTER FOR SCREENING OF MOT 09/29/2016 ARPITA BROWN MD, Ot36 ENCOUNTER FOR SCREENING OF MOT 09/29/2016 ARPITA BROWN MD, Ot3A.01 LESS THAN 8 WEEKS GESTATION OF 09/29/2016 ARPITA BROWN MD, Ot36 ENCOUNTER FOR SCREENING OF MOT 09/29/2016 ARPITA BROWN MD, Ot3A.19 19 WEEKS GESTATION OF 10/09/2016 ARPITA BROWN MD, Ot O44.00 COMPLETE PLACENTA PREVIA NOS OR WITHOUT 10/09/2016 ARPITA BROWN MD, Ot Z3A.00 WEEKS OF GESTATION OF NOT SPEC 10/27/2016 ARPITA BROWN MD, Ot O44.00 COMPLETE PLACENTA PREVIA NOS OR WITHOUT 10/27/2016 ARPITA BROWN MD, Ot3A.00 WEEKS OF GESTATION OF NOT SPEC 12/09/2016 ARPITA BROWN MD, Ot O47.1 FALSE LABOR AT OR AFTER 37 COMPLETED WEE 12/09/2016 ARPITA BROWN MD, Ot Z3A.37 37 WEEKS GESTATION OF 12/20/2016 ARPITA BROWN MD, Ot Z36 ENCOUNTER FOR SCREENING OF MOT 12/20/2016 ARPITA BROWN MD, Ot Z3A.09 9 WEEKS GESTATION OF 12/20/2016 ARPITA BROWN MD, Ot O20.9 HEMORRHAGE IN EARLY , UNSPECIFI 12/20/2016 ARPITA BROWN MD, Ot3A.14 14 WEEKS GESTATION OF 12/20/2016 ARPITA BROWN MD, Ot Z36 ENCOUNTER FOR SCREENING OF MOT 12/20/2016 ARPITA BROWN MD, Ot Z36 ENCOUNTER FOR SCREENING OF MOT 12/20/2016 ARPITA BROWN MD, Ot Z3A.01 LESS THAN 8 WEEKS GESTATION OF 12/20/2016 ARPITA BROWN MD, Ot Z36 ENCOUNTER FOR SCREENING OF MOT 12/20/2016 ARPITA BROWN MD, Ot Z3A.19 19 WEEKS GESTATION OF 12/20/2016 ARPITA BROWN MD, Ot O44.00 COMPLETE PLACENTA PREVIA NOS OR WITHOUT 12/20/2016 ARPITA BROWN MD, Ot Z3A.00 WEEKS OF GESTATION OF NOT SPEC 12/21/2016 ARPITA BROWN MD, Ot O47.1 FALSE LABOR AT OR AFTER 37 COMPLETED WEE 12/21/2016 ARPITA BROWN MD, Ot Z3A.37 37 WEEKS GESTATION OF 12/22/2016 ARPITA BROWN MD, Ot D50.9 IRON DEFICIENCY ANEMIA, UNSPECIFIED 12/22/2016 ARPITA BROWN MD, Ot O99.03 ANEMIA COMPLICATING THE PUERPERIUM 12/22/2016 ARPITA BROWN MD, Ot Z23 ENCOUNTER FOR IMMUNIZATION 12/22/2016 ARPITA BROWN MD, Ot Z37.0 SINGLE LIVE 12/22/2016 ARPITA BROWN MD, Ot Z3A.38 38 WEEKS GESTATION OF 12/29/2016 ARPITA BROWN MD, Ot Z36 ENCOUNTER FOR SCREENING OF MOT 12/29/2016 ARPITA BROWN MD, Ot Z3A.01 LESS THAN 8 WEEKS GESTATION OF 11/30/2017 YENNY GARCIA APRN Ot V28.89 OTHER SPECIFIED SCREENING 11/30/2017 YENNY GARCIA APRN Ot V28.89 OTHER SPECIFIED SCREENING 11/30/2017 YENNY GARCIA APRN Ot 640.03 THREATEN ABORT-ANTEPART 11/30/2017 ARPITA BROWN MD, Ot V22.1 SUPERVIS OTH NORMAL PREG 11/30/2017 ARPITA BROWN MD, Ot Z36 ENCOUNTER FOR SCREENING OF MOT 11/30/2017 ARPITA BROWN MD, Ot Z3A.09 9 WEEKS GESTATION OF 11/30/2017 ARPITA BROWN MD, Ot O20.9 HEMORRHAGE IN EARLY , UNSPECIFI 11/30/2017 ARPITA BROWN MD, Ot Z3A.14 14 WEEKS GESTATION OF 11/30/2017 ARPITA BROWN MD, Ot Z36 ENCOUNTER FOR SCREENING OF MOT 11/30/2017 ARPITA BROWN MD, Ot36 ENCOUNTER FOR SCREENING OF MOT 11/30/2017 ARPITA BROWN MD, Ot3A.01 LESS THAN 8 WEEKS GESTATION OF 11/30/2017 ARPITA BROWN MD, Ot36 ENCOUNTER FOR SCREENING OF MOT 11/30/2017 ARPITA BROWN MD, Ot3A.19 19 WEEKS GESTATION OF 11/30/2017 ARPITA BROWN MD, Ot O44.00 COMPLETE PLACENTA PREVIA NOS OR WITHOUT 11/30/2017 ARPITA BROWN MD, Ot Z3A.00 WEEKS OF GESTATION OF NOT SPEC 12/03/2017 YENNY GARCIA COMMUNITY RELATIONS REPRESENTATIVE Ot V28.89 OTHER SPECIFIED SCREENING 12/03/2017 YENNY GARCIA COMMUNITY RELATIONS REPRESENTATIVE Ot V28.89 OTHER SPECIFIED SCREENING 12/03/2017 YENNY GARCIA COMMUNITY RELATIONS REPRESENTATIVE Ot 640.03 THREATEN ABORT-ANTEPART 12/03/2017 ARPITA BROWN MD, Ot V22.1 SUPERVIS OTH NORMAL PREG 12/03/2017 ARPITA BROWN MD, Ot Z36 ENCOUNTER FOR SCREENING OF MOT 12/03/2017 ARPITA BROWN MD, Ot Z3A.09 9 WEEKS GESTATION OF 12/03/2017 ARPITA BROWN MD, Ot O20.9 HEMORRHAGE IN EARLY , UNSPECIFI 12/03/2017 ARPITA BROWN MD, Ot Z3A.14 14 WEEKS GESTATION OF 12/03/2017 ARPITA BROWN MD, Ot36 ENCOUNTER FOR SCREENING OF MOT 12/03/2017 ARPITA BROWN MD, Ot Z36 ENCOUNTER FOR SCREENING OF MOT 12/03/2017 ARPITA BROWN MD, Ot Z3A.01 LESS THAN 8 WEEKS GESTATION OF 12/03/2017 ARPITA BROWN MD, Ot Z36 ENCOUNTER FOR SCREENING OF MOT 12/03/2017 ARPITA BROWN MD, Ot Z3A.19 19 WEEKS GESTATION OF 12/03/2017 ARPITA BROWN MD, Ot O44.00 COMPLETE PLACENTA PREVIA NOS OR WITHOUT 12/03/2017 ARPITA BROWN MD, Ot Z3A.00 WEEKS OF GESTATION OF NOT SPEC 12/06/2017 RADHAMEGHAYENNY A COMMUNITY RELATIONS REPRESENTATIVE Ot V28.89 OTHER SPECIFIED SCREENING 12/06/2017 RADHA YENNY Dwyer COMMUNITY RELATIONS REPRESENTATIVE Ot V28.89 OTHER SPECIFIED SCREENING 12/06/2017 MEGHA GARCIAIDI Yuliya COMMUNITY RELATIONS REPRESENTATIVE Ot 640.03 THREATEN ABORT-ANTEPART 12/06/2017 ARPITA BROWN MD, Ot V22.1 SUPERVIS OTH NORMAL PREG 12/06/2017 ARPITA BROWN MD, Ot Z36 ENCOUNTER FOR SCREENING OF MOT 12/06/2017 ARPITA BROWN MD, Ot Z3A.09 9 WEEKS GESTATION OF 12/06/2017 ARPITA BROWN MD, Ot O20.9 HEMORRHAGE IN EARLY , UNSPECIFI 12/06/2017 ARPITA BROWN MD, Ot Z3A.14 14 WEEKS GESTATION OF 12/06/2017 ARPITA BROWN MD, Ot Z36 ENCOUNTER FOR SCREENING OF MOT 12/06/2017 ARPITA BROWN MD, Ot Z36 ENCOUNTER FOR SCREENING OF MOT 12/06/2017 ARPITA BROWN MD, Ot Z3A.01 LESS THAN 8 WEEKS GESTATION OF 12/06/2017 ARPITA BROWN MD, Ot Z36 ENCOUNTER FOR SCREENING OF MOT 12/06/2017 ARPITA BROWN MD, Ot Z3A.19 19 WEEKS GESTATION OF 12/06/2017 ARPITA BROWN MD, Ot O44.00 COMPLETE PLACENTA PREVIA NOS OR WITHOUT 12/06/2017 ARPITA BROWN MD, Ot Z3A.00 WEEKS OF GESTATION OF NOT SPEC 12/07/2017 ARPITA BROWN MD, Ot Z36.89 ENCOUNTER FOR OTHER SPECIFIED 12/07/2017 ARPITA BROWN MD, Ot Z3A.19 19 WEEKS GESTATION OF 12/12/2017 ARPITA BROWN MD, Ot Z36.89 ENCOUNTER FOR OTHER SPECIFIED 12/12/2017 ARPITA BRONW MD, Ot Z3A.19 19 WEEKS GESTATION OF 12/23/2017 ARPITA BROWN MD, Ot Z36.89 ENCOUNTER FOR OTHER SPECIFIED 12/23/2017 STEPHANIE WARE, ARPITA Oseguera Ot Z3A.19 19 WEEKS GESTATION OF Procedures Code Description Performed By Performed On 96.49 OTHER INSTILLATION 06/16/2011 75.69 REPAIR OB LACERATION NEC 06/17/2011 62304 URINE TEST (IN- HOUSE) 06/07/2012 31895 UA W/ CULTURE IF INDICATED 06/07/2012 93913 TRICHOMONAS (IN-HOUSE) 06/07/2012 42361 CULTURE UROGENITAL 06/07/2012 87966 CULTURE URINE 06/07/2012 21431 GC/CHLAM PROBE ([facility]) 06/07/2012 23722 URINE TEST (IN- HOUSE) 12/28/2012 46760 US OB - EARLY <14 WEEKS 04/19/2013 73564 CULTURE UROGENITAL 04/19/2013 00546 GC/CHLAM PROBE ([facility]) 04/19/2013 96420 PAP SMEAR 04/19/2013 Q0091 PAP SMEAR OBTAIN SMEAR 04/19/2013 91409 TEST, URINE (IN- HOUSE) 04/19/2013 11109 TRICHOMONAS (IN-HOUSE) 04/19/2013 88201 ROUTINE VENIPUNCTURE 04/25/2013 58778 HCG QUANTITATIVE 04/25/2013 67005 BLOOD TYPE/Rh FACTOR 04/25/2013 86521 ROUTINE VENIPUNCTURE 04/27/2013 67797 US OB - EARLY <14 WEEKS 04/27/2013 16344 HCG QUANTITATIVE 04/27/2013 55293 ROUTINE VENIPUNCTURE 05/01/2013 87186 HCG QUANTITATIVE 05/01/2013 28373 US OB - FOLLOW UP 05/02/2013 18685 ROUTINE VENIPUNCTURE 05/30/2013 64318 T4 FREE 05/30/2013 36546 T3 TOTAL 05/30/2013 14002 SYPHILLIS-[facility] 05/30/2013 36284 HIV ([facility]) 05/30/2013 91478 ANTIBODY SCREEN (order) 05/30/2013 75716 HEP B SURFACE ANTIGEN (STATE ) 05/30/2013 38357 UA OB DIP 05/30/2013 34126 CBC 05/30/2013 68888 TSH 05/30/2013 4336106 ANTIBODY SCREEN (RESULT ONLY) 05/31/2013 85779 BLOOD TYPE/Rh FACTOR 05/31/2013 81699 RUBELLA ANTIBODY, IGG 05/31/2013 57283 CULTURE URINE 05/31/2013 94493 UA OB DIP 06/28/2013 84051 UA OB DIP 07/26/2013 79852 US OB - FOLLOW UP 08/21/2013 05021 UA OB DIP 08/23/2013 35337 US OB - COMPLETE >14 WEEKS 09/01/2013 15228 ROUTINE VENIPUNCTURE 09/27/2013 62989 UA OB DIP 09/27/2013 19483 CBC 09/27/2013 36548 GLUCOSE JANNY 1 HOUR 09/27/2013 74629 UA OB DIP 10/18/2013 31318 UA OB DIP 11/01/2013 52560 UA OB DIP 11/22/2013 98521 UA OB DIP 11/29/2013 32668 CULTURE GROUP B STREP VAG 12/01/2013 67445 UA OB DIP 12/06/2013 73.59 MANUAL ASSIST DELIV NEC 12/07/2013 08295 IUD INSERTION 01/18/2014 J7302 LEVONORGESTREL IU CONTRACEPT 01/18/2014 53738 TEST, URINE (IN- HOUSE) 01/18/2014 [id number] DELIVERY OF PRODUCTS OF CONCEPTION, EXTE 11/15/2015 [id number] DELIVERY OF PRODUCTS OF CONCEPTION, EXTE 12/20/2016 Results Test Result Range Complete blood count (CBC) with automated white blood cell (WBC) differential - 11/14/15 21:45 Blood leukocytes automated count (number/volume) 7.0 10*3/uL 4.3-11.0 Blood erythrocytes automated count (number/volume) 3.84 10*6/uL 4.35-5.85 Venous blood hemoglobin measurement (mass/volume) 11.6 [...] Automated blood platelet mean volume measurement 10.8 [foz_us] 7.4-10.4 Automated blood neutrophils/100 leukocytes 58 % [...] ABO+Rh group OP NRG Transfusion band number [id number] NRG Blood group antibody screen NEGATIVE NRG Complete blood count (CBC) with automated white blood cell (WBC) differential - 11/16/15 05:36 Blood leukocytes automated count (number/volume) 8.7 10*3/uL 4.3-11.0 Blood erythrocytes automated count (number/volume) 3.74 10*6/uL 4.35-5.85 Venous blood hemoglobin measurement (mass/volume) 11.0 [...] Automated blood platelet mean volume measurement 10.5 [foz_us] 7.4-10.4 Automated blood neutrophils/100 leukocytes 57 % [...] blood basophil count (count/volume) 0.0 10*3/uL 0.0-0.1 Complete urinalysis with reflex to culture - 12/09/16 13:55 Urine color determination YELLOW NRG Urine clarity determination SLIGHTLY CLOUDY NRG Urine pH measurement by test strip 5 5-9 Specific gravity of urine by test strip 1.025 1.016- 1.022 Urine protein assay by test strip, semi-quantitative 2+ NEGATIVE Urine glucose detection by automated test strip NEGATIVE NEGATIVE Erythrocytes detection in urine sediment by light microscopy 1+ NEGATIVE Urine ketones detection by automated test strip 2+ NEGATIVE Urine nitrite detection by test strip NEGATIVE NEGATIVE Urine total bilirubin detection by test strip NEGATIVE NEGATIVE Urine urobilinogen measurement by automated test strip (mass/volume) NORMAL NORMAL Urine leukocyte esterase detection by dipstick 3+ NEGATIVE Automated urine sediment erythrocyte count by microscopy (number/high power field) [HPF] NRG Automated urine sediment leukocyte count by microscopy (number/high power field ) [HPF] NRG Bacteria detection in urine sediment by light microscopy MODERATE NRG Squamous epithelial cells detection in urine sediment by light microscopy >50 NRG Crystals detection in urine sediment by light microscopy NONE NRG Casts detection in urine sediment by light microscopy NONE NRG Mucus detection in urine sediment by light microscopy NEGATIVE NRG Complete urinalysis with reflex to culture NO NRG Complete blood count (CBC) with automated white blood cell (WBC) differential - 12/20/16 21:25 Blood leukocytes automated count (number/volume) 7.6 10*3/uL 4.3-11.0 Blood erythrocytes automated count (number/volume) 3.60 10*6/uL 4.35-5.85 Venous blood hemoglobin measurement (mass/volume) 10.2 g/dL 11.5-16.0 Blood hematocrit (volume fraction) 31 % 35-52 Automated erythrocyte mean corpuscular volume 87 [foz_us] 80-99 Automated erythrocyte mean corpuscular hemoglobin (mass per erythrocyte) 28 pg 25-34 Automated erythrocyte mean corpuscular hemoglobin concentration measurement ( mass/volume) 33 g/dL 32-36 Automated erythrocyte distribution width ratio 13.0 % 10.0-14.5 Automated blood platelet count (count/volume) 172 10*3/uL 130-400 Automated blood platelet mean volume measurement 11.2 [foz_us] 7.4-10.4 Automated blood neutrophils/100 leukocytes 63 % 42-75 Automated blood lymphocytes/100 leukocytes 26 % 12-44 Blood monocytes/100 leukocytes 11 % 0-12 Automated blood eosinophils/100 leukocytes 1 % 0-10 Automated blood basophils/100 leukocytes 0 % 0-10 Blood neutrophils automated count (number/volume) 4.7 10*3 1.8-7.8 Blood lymphocytes automated count (number/volume) 1.9 10*3 1.0-4.0 Blood monocytes automated count (number/volume) 0.8 10*3 0.0-1.0 Automated eosinophil count 0.1 10*3/uL 0.0-0.3 Automated blood basophil count (count/volume) 0.0 10*3/uL 0.0-0.1 Blood type T Indirect antibody screen panel - 12/20/16 21:25 ABO+Rh group OP NRG Transfusion band number [id number] NR Blood group antibody screen NEGATIVE NR Complete blood count (CBC) with automated white blood cell (WBC) differential - 12/21/16 05:30 Blood leukocytes automated count (number/volume) 10.3 10*3/uL 4.3-11.0 Blood erythrocytes automated count (number/volume) 3.57 10*6/uL 4.35-5.85 Venous blood hemoglobin measurement (mass/volume) 9.9 g/dL 11.5-16.0 Blood hematocrit (volume fraction) 31 % 35-52 Automated erythrocyte mean corpuscular volume 87 [foz_us] 80-99 Automated erythrocyte mean corpuscular hemoglobin (mass per erythrocyte) 28 pg 25-34 Automated erythrocyte mean corpuscular hemoglobin concentration measurement ( mass/volume) 32 g/dL 32-36 Automated erythrocyte distribution width ratio 13.0 % 10.0-14.5 Automated blood platelet count (count/volume) 160 10*3/uL 130-400 Automated blood platelet mean volume measurement 11.0 [foz_us] 7.4-10.4 Automated blood neutrophils/100 leukocytes 67 % 42-75 Automated blood lymphocytes/100 leukocytes 23 % 12-44 Blood monocytes/100 leukocytes 10 % 0-12 Automated blood eosinophils/100 leukocytes 1 % 0-10 Automated blood basophils/100 leukocytes 0 % 0-10 Blood neutrophils automated count (number/volume) 6.9 10*3 1.8-7.8 Blood lymphocytes automated count (number/volume) 2.4 10*3 1.0-4.0 Blood monocytes automated count (number/volume) 1.0 10*3 0.0-1.0 Automated eosinophil count 0.1 10*3/uL 0.0-0.3 Automated blood basophil count (count/volume) 0.0 10*3/uL 0.0-0.1 Encounters ACCT No. Visit Date/Time Discharge Status Pt. Type Provider Facility Loc./Unit Complaint [id number] 07/31/2014 09:03:00 07/31/2014 23:59:59 CLS Outpatient YENNY GARCIA APRN [id number] 06/05/2014 10:43:00 06/05/2014 23:59:59 CLS Outpatient LOI CARDOSO DO [id number] 01/18/2014 13:26:00 01/18/2014 23:59:59 CLS Outpatient YENNY GARCIA APRN [id number] 12/27/2013 10:26:00 12/27/2013 23:59:59 CLS Outpatient YENNY GARCIA APRN [id number] 12/06/2013 15:34:00 12/06/2013 23:59:59 CLS Outpatient ARPITA BROWN MD [id number] 11/22/2013 13:59:00 11/22/2013 23:59:59 CLS Outpatient ARPITA BROWN MD [id number] 10/18/2013 13:56:00 10/18/2013 23:59:59 CLS Outpatient LOI CARDOSO DO [id number] 09/27/2013 13:56:00 09/27/2013 23:59:59 CLS Outpatient ARPITA BROWN MD [id number] 07/26/2013 14:30:00 07/26/2013 23:59:59 CLS Outpatient LOI CARDOSO DO [id number] 06/28/2013 13:43:00 06/28/2013 23:59:59 CLS Outpatient LOI CARDOSO DO [id number] 05/30/2013 09:54:00 05/30/2013 23:59:59 CLS Outpatient YENNY GARCIA APRN [id number] 05/15/2013 07:39:00 05/15/2013 23:59:59 CLS Outpatient YAMILEX BUI DDS [id number] 05/02/2013 15:16:00 05/02/2013 23:59:59 CLS Outpatient YENNY GARCIA APRN [id number] 05/01/2013 07:56:00 05/01/2013 23:59:59 CLS Outpatient YENNY GARCIA APRN [id number] 04/27/2013 08:03:00 04/27/2013 23:59:59 CLS Outpatient YENNY GARCIA APRN [id number] 04/25/2013 08:22:00 04/25/2013 23:59:59 CLS Outpatient YENNY GARCIA APRN [id number] 04/19/2013 08:52:00 04/19/2013 23:59:59 CLS Outpatient YENNY GARCIA APRN [id number] 12/28/2012 14:01:00 12/28/2012 23:59:59 CLS Outpatient YENNY GARCIA APRN [id number] 06/07/2012 10:59:00 06/07/2012 23:59:59 CLS Outpatient JANAE MARCUMLOI Desiree [id number] 01/12/2015 10:56:01 ACT Document Registration [id number] 12/06/2017 15:35:00 12/06/2017 23:59:59 CLS Outpatient ARPITA BROWN MD [facility] RAD SURVEY [id number] 12/20/2016 21:17:00 12/22/2016 11:40:00 DIS Inpatient ARPITA BROWN MD [facility] LDRP LABOR [id number] 12/09/2016 14:09:00 12/09/2016 20:33:00 DIS Outpatient ARPITA BROWN MD [facility] WSo CONTRACTIONS [id number] 09/29/2016 12:59:00 09/29/2016 23:59:59 CLS Outpatient ARPITA BROWN MD [facility] RAD PREVIA [id number] 08/06/2016 10:51:00 08/06/2016 23:59:59 CLS Outpatient ARPITA BROWN MD [facility] RAD SURVEY [id number] 05/21/2016 12:51:00 05/21/2016 23:59:59 CLS Outpatient ARPITA BROWN MD [facility] RAD DATING [id number] 11/14/2015 21:25:00 11/16/2015 13:20:00 DIS Inpatient ARPITA BROWN MD [facility] LDRP INDUCTION [id number] 11/14/2015 18:29:00 11/14/2015 18:29:00 CAN Preadmit ARPITA BROWN MD [facility] WSo INDUCTION [id number] 10/27/2015 06:59:00 10/27/2015 10:25:00 DIS Outpatient [facility], 36 WKS PREG [id number] 10/21/2015 22:52:00 10/22/2015 02:58:00 DIS Outpatient ARPITA BROWN MD [facility] WSo CONTRACTIONS [id number] 07/26/2015 14:14:00 07/26/2015 23:59:59 CLS Outpatient ARPITA BROWN MD [facility] RAD SURVEY [id number] 05/22/2015 11:57:00 05/22/2015 23:59:59 CLS Outpatient ARPITA BROWN MD [facility] RAD 14 WEEKS VAGINAL BLEEDING [id number] 04/25/2015 14:17:00 04/25/2015 23:59:59 CLS Outpatient ARPITA BROWN MD [facility] RAD DATING [id number] 01/12/2015 10:55:00 01/12/2015 13:37:00 DIS Emergency FLORENCIA MACARIO MD [facility] ER LOWER ABD PAIN [id number] 12/06/2013 21:09:00 12/08/2013 12:10:00 DIS Inpatient ARPITA BROWN MD [facility] LDRP LABOR [id number] 11/24/2013 18:33:00 11/24/2013 23:45:00 DIS Outpatient ARPITA BROWN MD [facility] WSo LOWER ABD PAIN [id number] 09/01/2013 13:20:00 09/01/2013 23:59:59 CLS Outpatient ARPITA BROWN MD [facility] RAD SURVEY [id number] 08/21/2013 00:04:00 08/21/2013 02:25:00 DIS Outpatient LOI CARDOSO DO K [facility] WSo BLEEDING 22 WEEKS [id number] 05/18/2013 09:38:00 05/18/2013 23:59:59 CLS Outpatient RADHA, YENNY A [employer]ATIONS REPRESENTATIVE [facility] RAD F/U DETAL BRADYCARDIA [id number] 05/02/2013 08:10:00 05/02/2013 23:59:59 CLS Outpatient RADHA, YENNY A COMM[employer]ITY RELATIONS REPRESENTATIVE [facility] RAD DATING,VIABILITY [id number] 04/20/2013 15:20:00 04/20/2013 23:59:59 CLS Outpatient RADHA, YENNY A COMMUNITY RELATIONS REPRESENTATIVE [facility] RAD DATING/RLQ PAIN [id number] 01/03/2013 21:46:00 01/03/2013 22:32:00 DIS Emergency IVON ZEE [employer]ATIONS REPRESENTATIVE [facility] ER R WRIST PAIN [id number] 06/16/2011 19:39:00 Document Registration [id number] 04/16/2011 13:00:00 Document Registration [id number] 04/02/2011 14:49:00 Document Registration [id number] 02/04/2011 12:50:00 Document Registration [id number] 02/19/2010 18:36:00 Document Registration [id number] 02/17/2010 15:58:00 Document Registration
[2018-04-18] MEDS ORDERED: D5 LR IV SOLUTION 1,000 ML IV ONE (06:15)
[2018-04-18] MEDS ORDERED: D5 LR IV SOLUTION 1,000 ML IV SCH (06:18)
[2018-04-18] MEDS ORDERED: MINERAL OIL CONCENTRATE 99.9% 15 ML UDC TOP PRN (06:30)
[2018-04-18 06:54] LABS: BASOPHILS % (AUTO) 0 % (0-10); EOSINOPHILS # (AUTO) 0.1 10^3/uL (0.0-0.3); EOSINOPHILS % (AUTO) 1 % (0-10); HEMATOCRIT 31 % (35-52); HEMOGLOBIN 10.3 G/DL (11.5-16.0); LYMPHOCYTES # (AUTO) 1.9 X 10^3 (1.0-4.0); LYMPHOCYTES % (AUTO) 32 % (12-44); MEAN CORPUSCULAR HEMOGLOBIN 29 PG (25-34); MEAN CORPUSCULAR HGB CONC 33 G/DL (32-36); MEAN CORPUSCULAR VOLUME 89 FL (80-99); MEAN PLATELET VOLUME 10.2 FL (7.4-10.4); MONOCYTES # (AUTO) 0.8 X 10^3 (0.0-1.0); MONOCYTES % (AUTO) 13 % (0-12); NEUTROPHILS # (AUTO) 3.3 X 10^3 (1.8-7.8); NEUTROPHILS % (AUTO) 55 % (42-75); PLATELET COUNT 206 10^3/uL (130-400); RED BLOOD COUNT 3.55 10^6/uL (4.35-5.85); WHITE BLOOD COUNT 6.1 10^3/uL (4.3-11.0)
--- NOTE | 2018-04-18 06:58 | History & Physical-OB ---
OB - Chief Complaint & HPI Date/Time Date of Admission: Date of Admission: Apr 18, 2018 at 06:01 Date seen by a Provider: Apr 18, 2018 Time Seen by a Provider: 07:10 Chief Complaint/History OB-Reason for Admission/Chief: Induction of Labor Hx : 6 Hx Para: 5 Expected Date of Delivery: Apr 24, 2018 Gestational Age in Weeks: 39 Gestational Age in Days: 1 Admission Nurse Assessment Rev: Yes History of Labs GBS negative Allergies and Home Medications Allergies Coded Allergies: No Known Drug Allergies (Verified , 12/06/07) Home Medications Vit/Iron Fumarate/FA 1 Each Tablet, 1 EACH PO DAILY, (Reported) Patient Home Medication List Home Medication List Reviewed: Yes OB - History Hx of Present Care: Yes Ultrasounds: Normal mid trimester US Obstetrical Complications: None Medical Complications: None Obstetrical History Hx Termination: No Hx Multiple Gestation: No Hx Stillbirth: No Hx Complication: No Hx Induced Hypertens: No Hx Maternal Gestational Diabet: No Delivery History Hx Dystocia: No Hx Large For Gestational Age I: No Hx Small for Gestational Age I: No Hx Section: No Hx Vaginal Delivery Post C-Sec: No Hx Blood Disorders: No Patient Past Medical History no chronic medical problems Social History/Family History Recent Infectious Disease Expo: No Sexually Transmitted Disease: No Immunizations Tetanus Booster (TDap): Less than 5yrs Date of Influenza Vaccine: Jan 13, 2015 OB - Admission Exam Physical Exam HEENT: Moist Membranes Heart: Rhythm Normal Lungs: Clear Abdomen: Gravid Cervical Dilatation: 2cm Effacement: 50% Station: -2 Membranes: Intact Heart Rate: 140's Intensity: Mild Montoya Scoring Tool (Modified) Dilation (cm): 1-2cm (1) Effacement (%): 31-51% (1) Descent/Station: -2 (1) Cervix Consistency: Medium(1) Cervix Position: Middle/Mid-Position (1) Add 1 point for: Each previous vaginal delivery (1) Labs Laboratory Tests Test 04/18/18 06:30 Range/Units OB - Assessment/Plan/Diagnosis Assessment Assessment: induction of labor Admission Dx 1. IUP at 39w 1d gestation Admission Status: Inpatient Order (span 2 midnights) Reason for Inpatient Admission: L&D Plan Plan: Induction Induction Method: AROM Other Plan -pitocin if needed ARPITA BROWN MD Apr 18, 2018 06:58
[2018-04-18] MEDS ORDERED: FLU QUADRIvalent (5+ YOA) 2018-2019 (AFLURIA) 0.5 ML IM ONE (07:00)
[2018-04-18] MEDS ORDERED: OXYTOCIN/NORMAL SALINE 500 ML IV SCH ×2 (07:29→16:13)
[2018-04-18] MEDS ORDERED: OXYTOCIN/NORMAL SALINE 500 ML IV ONE (07:35)
[2018-04-18] MEDS ORDERED: MEPIVACAINE (CARBOCAINE) 2% 50 ML VIAL ONE (13:57)
[2018-04-18] MEDS ORDERED: CATHETER FLUSH 10 ML SYR IV SCH ×2 (14:00→22:00)
--- NOTE | 2018-04-18 16:09 | NUR ---
REFER TO LABOR FLOW SHEET. PT REMAINS UP IN ROOM BRIEFLY, BEFORE SITTING DOWN IN BED, HOLDING INFANT. NO NEEDS VOICED AT THIS TIME. FRESH ICE WATER PROVIDED. S/O REMAINS AT THE BEDSIDE.
[2018-04-18] MEDS ORDERED: WITCH HAZEL(TUCKS) 40 EA JAR TOP PRN (16:15)
[2018-04-18] MEDS ORDERED: MEASLES,MUMPS,RUBELLA 1 EA INJ SQ ONE (16:15)
[2018-04-18] MEDS ORDERED: HYDROcodone/APAP 5 MG/325 MG (LORTAB) TAB PO PRN (16:15)
[2018-04-18] MEDS ORDERED: BENZOCAINE/MENTHOL (DERMOPLAST) 56 ML CAN TP PRN (16:15)
[2018-04-18] MEDS ORDERED: TETANUS,DIPTH,PERTUSS P/F (BOOSTRIX) 0.5 ML VIAL IM ONE (16:15)
--- NOTE | 2018-04-18 16:30 | OB Labor & Delivery Record ---
L&D History Date of Service Date of Service: Apr 18, 2018 History Expected Date of Delivery: Apr 24, 2018 Gestational Age in Weeks: 39 Hx : 6 Hx Para: 6 Complications Events: Routine care Operative Indications (Cesarea: N/A-Vaginal Delivery Intrapartal Events: None L&D Stage1 Stage One Onset of Labor - Date: Apr 18, 2018 Onset of Labor - Time: 07:20 Monitors and Tracing Monitor Mode: Internal Heart Rate: 145 Monitor Accelerations: Uniform Monitor Decelerations: Variable Station: -3 [employer] Variability: Average (6-10) Short Term Variability: Present Presentation: Vertex Vital Signs VS - Last 72 Hours, by Label 04/18/18 04/18/18 04/18/18 04/18/18 06:25 07:45 08:30 08:45 Temp 97.7 Pulse 90 96 95 Resp 18 18 18 B/P (MAP) 122/78 (93) 116/75 (89) 125/87 (100) O2 Delivery Room Air Room Air Room Air 04/18/18 04/18/18 04/18/18 04/18/18 09:00 09:15 09:30 09:45 Temp 97.7 Pulse 88 81 79 71 Resp 18 18 18 18 B/P (MAP) 113/65 (81) 122/75 (91) 124/69 (87) 115/70 (85) O2 Delivery Room Air Room Air Room Air Room Air 04/18/18 04/18/18 04/18/18 04/18/18 10:00 10:15 10:30 10:45 Pulse 90 74 85 81 Resp 18 18 18 18 B/P (MAP) 128/76 (93) 118/68 (85) 125/85 (98) 118/71 (87) O2 Delivery Room Air Room Air Room Air Room Air 04/18/18 04/18/18 04/18/18 04/18/18 11:00 11:15 11:30 11:45 Pulse 85 85 84 81 Resp 18 18 18 18 B/P (MAP) 115/74 (88) 103/65 (78) 109/71 (84) 111/64 (80) O2 Delivery Room Air Room Air Room Air Room Air 1/7/19 1/7/19 1/7/19 1/7/19 12:00 12:15 12:30 12:45 Pulse 85 83 81 79 Resp 18 18 18 18 B/P (MAP) 116/61 (79) 110/61 (77) 108/62 (77) 121/73 (89) O2 Delivery Room Air Room Air Room Air Room Air 04/18/18 04/18/18 04/18/18 04/18/18 13:00 13:15 13:30 13:45 Temp 98.2 97.9 Pulse 71 74 77 Resp 18 18 18 B/P (MAP) 125/64 (84) 109/62 (78) 113/72 (86) O2 Delivery Room Air Room Air Room Air Room Air Signs of Distress by FHT Signs of Distress no Rupture of Membranes Spontaneous Ruture of Membrane: No Amniotic Membrane Rupture Time: 719 Amniotic Membrane Fluid Desc.: Clear L&D Stage2 Stage Two Stage II Date: Apr 18, 2018 Stage II Time: 14:16 Monitors and Tracing Monitor Mode: Internal Heart Rate: 145 Monitor Accelerations: Uniform Monitor Decelerations: Variable Alf Variability: Average (6-10) Short Term Variability: Present Position: Left Occiput Anterior Presentation: Vertex Signs of Distress by FHT Signs of Distress no Cord Descript/Complications Cord Vessel Description: 3 Vessels Delivery Type Delivery Method: Spontaneous Vaginal Anterior Shoulder: Left Episiotomy/Perineal Laceration Laceraction(s)/Extensions: No Condition of Infant Delivery 1 minute Comment: 8 5 minute Comment: 9 Condition of Infant Condition of : Living Exam: No Observed Abnormalities Resuscitation Resuscitation: N/A - Spontaneous Resp L&D Stage3 Stage Three Stage III Date: Apr 18, 2018 Stage III Time: 14:19 Pictocin Pitocin Administration mu/min: 12 Pitocin ml/hr: 12 Pitocin Administration Comment: 1249 PITOCIN INCREASED. Placenta Delivery Placenta Delivery: Spontaneous Delivery Summary Summary Estimated blood loss (mL): 150 Condition of Delivery Examined: Cervix Examined Post Hemorrhage: No Intervention Required none ARPITA BROWN MD Apr 18, 2018 16:30
--- NOTE | 2018-04-18 17:50 | NUR ---
THIS RN TO PT'S BEDSIDE. QUESTIONS ANSWERED RE: INFANT. PT VOICES THAT SHE JUST WENT TO THE BATHROOM AND PASSED A LARGE CLOT. FFU/-1, LT MONIE NOTED. NO MORE CLOTS EXPRESSED. PITOCIN COMPLETE. IV SALINE LOCKED. PT INFORMED THAT THIS RN WILL BE BACK IN AN HOUR TO RECHECK HER BLEEDING. ROUTINE MOTRIN GIVEN PO; SEE EMAR FOR FURTHER. FAMILY AT THE BEDSIDE.
[2018-04-18] MEDS: IBUPROFEN 600 MG (MOTRIN) TAB PO SCH ×2 (17:51→23:51)
--- NOTE | 2018-04-18 19:00 | NUR ---
FFU/-1, LT MONIE PADRON NOTED. PT HAS PUT A NEW PAD ON. NEW BAG OF PITOCIN HUNG AND INFUSING @ 125 ML/HR/PUMP. WILL INFORM NEXT SHIFT TO CONTINUE MONITORING.
--- NOTE | 2018-04-18 19:20 | NUR ---
REPORT TO Florinda ARVIZU RN.
--- NOTE | 2018-04-18 23:00 | NUR ---
Fundus massaged. Firm and at umbilicus. Minimal bleeding noted. Pad checked. Pitocin stopped at this time. Bag is empty.
[2018-04-19 00:52] VITALS: BP 102/64
[2018-04-19 05:43] VITALS: BP 112/63
[2018-04-19] MEDS: IBUPROFEN 600 MG (MOTRIN) TAB PO SCH ×2 (05:43→12:45)
[2018-04-19 06:04] LABS: BASOPHILS % (AUTO) 0 % (0-10); EOSINOPHILS # (AUTO) 0.1 10^3/uL (0.0-0.3); EOSINOPHILS % (AUTO) 1 % (0-10); HEMATOCRIT 32 % (35-52); HEMOGLOBIN 10.1 G/DL (11.5-16.0); LYMPHOCYTES # (AUTO) 2.6 X 10^3 (1.0-4.0); LYMPHOCYTES % (AUTO) 31 % (12-44); MEAN CORPUSCULAR HGB CONC 32 G/DL (32-36); MEAN CORPUSCULAR VOLUME 89 FL (80-99); MEAN PLATELET VOLUME 10.1 FL (7.4-10.4); MONOCYTES # (AUTO) 0.9 X 10^3 (0.0-1.0); MONOCYTES % (AUTO) 11 % (0-12); NEUTROPHILS # (AUTO) 4.9 X 10^3 (1.8-7.8); NEUTROPHILS % (AUTO) 58 % (42-75); PLATELET COUNT 198 10^3/uL (130-400); RED BLOOD COUNT 3.55 10^6/uL (4.35-5.85); RED CELL DISTRIBUTION WIDTH 14.3 % (10.0-14.5); WHITE BLOOD COUNT 8.5 10^3/uL (4.3-11.0)
[2018-04-19 06:06] LABS: MEAN CORPUSCULAR HEMOGLOBIN 28 PG (25-34)
[2018-04-19] MEDS ORDERED: PRENATAL VITAMIN 1 EA TAB PO SCH (07:00)
--- NOTE | 2018-04-19 07:20 | NUR ---
DR. BROWN HERE TO SEE PT.
[2018-04-19 09:00] VITALS: BP 109/67
--- NOTE | 2018-04-19 09:00 | NUR ---
A.M. ASSESSMENT COMPLETED. VSS. CARING FOR IN ROOM. GOOD INTERACTION NOTED.
[2018-04-19] MEDS ORDERED: TETANUS,DIPTH,PERTUSS P/F (BOOSTRIX) 0.5 ML VIAL IM ONE (09:53)
--- NOTE | 2018-04-19 11:00 | NUR ---
INFANT HAS BEEN WELL. OFFERS NO COMPLAINT.
[2018-04-19 12:30] VITALS: BP 107/65
--- NOTE | 2018-04-19 13:00 | NUR ---
EATING STORK MEAL.
[2018-04-19] MEDS ORDERED: IBUP-844 PO (13:48)
--- NOTE | 2018-04-19 13:48 | Discharge Summary ---
Diagnosis/Chief Complaint Date of Admission Apr 18, 2018 at 06:01 Date of Discharge April 19, 2018 Discharge Date: Apr 19, 2018 Discharge Time: 15:00 Admission Diagnosis Admission Diagnosis 1. Intrauterine at term39 weeks gestation 2. Anemia iron deficiency and Discharge Diagnosis 1. Intrauterine at term39 weeks gestation 2. Anemia iron deficiency and Reason Hospital Visit 27-year-old 6 now term 6who presents to labor and delivery in the morning of April 18, 2018 for induction of labor. Patient was noted to be at 39 weeks gestation. Her care was essentially unremarkable. She had admitted to an occasional contraction but nothing sustained. There is been no vaginal bleeding or ruptured membranes spontaneously. Discharge Summary-OBS Procedures 1 Spontaneous vaginal delivery Discharge Physical Examination Allergies: Coded Allergies: No Known Drug Allergies (Verified , 12/06/07) Vitals & I&Os Vital Signs Date Time Temp Pulse Resp B/P (MAP) Pulse Ox O2 Delivery O2 Flow Rate FiO2 04/19/18 05:43 97.9 60 20 112/63 (79) 97 Room Air General Appearance: No Acute Distress Respiratory: Clear to Auscultation Cardiovascular: Regular Rate Abdominal: Soft (with uterus firm) Skin: No Rashes Psych/Mental Status: Mental Status NL Hospital Course patient was admitted during the morning of April 18, 2018 for artificial rupture of membranes. She was noted be at 39 weeks gestation. Fluid was noted to be clear at the time of scalp electrode placement. She required low- dose Pitocin augmentation. She did not request epidural as usual. Ultimately she went on to completion and delivered a term viable male with Apgars of 8 at 1 minute and 9 at 5 minutes. Following delivery patient underwent routine care orders. She had no complications during the remainder of hospital stay. She was noted to have a hemoglobin of 10 point 1 in the morning of April 19 compared to admission of 10.3. She denied any vaginal bleeding significantly during the course of stay. She tolerated regular diet. She denied any chest pain or shortness of breath. She was felt ready for dismissal during the afternoon of April. Pending Labs Laboratory Tests 04/19/18 05:55: White Blood Count 8.5, Red Blood Count 3.55, Hemoglobin 10.1, Hematocrit 32, Mean Corpuscular Volume 89, Mean Corpuscular Hemoglobin 28, Mean Corpuscular Hemoglobin Concent 32, Red Cell Distribution Width 14.3, Platelet Count 198, Mean Platelet Volume 10.1, Neutrophils (%) (Auto) 58, Lymphocytes (%) (Auto) 31 , Monocytes (%) (Auto) 11, Eosinophils (%) (Auto) 1, Basophils (%) (Auto) 0, Neutrophils # (Auto) 4.9, Lymphocytes # (Auto) 2.6, Monocytes # (Auto) 0.9, Eosinophils # (Auto) 0.1, Basophils # (Auto) 0.0 Discharge Instructions to patient/family Please see electronic discharge instructions given to patient. Discharge Medications Reviewed and agree with Discharge Medication list on patient's Discharge Instruction sheet Clinical Quality Measures DVT/VTE Risk/Contraindication: Risk Factor Score Per Nursin RFS Level Per Nursing on Admit: 1=Low/No VTE PPX ARPITA BROWN MD Apr 19, 2018 13:48
--- NOTE | 2018-04-19 13:50 | Discharge Inst-Women's Service ---
Discharge Inst-Women's Serv Depart Medication/Instructions New, Converted or Re-Newed RX: Transmitted to Pharmacy ([facility]) Consults/Follow Up Additional Follow Up: Yes (with Dr. Brown in 6 weeks) Activity Activity: Activity as Tolerated Driving Instructions: No Driving for 1 Week Nothing Inside Vagina: No [place] (for 6 weeks) Diet Discharge Diet: Regular Diet Return to The Hospital For: as below Symptoms to Report to : Bleeding Excessive, Pain Increased, Fever Over 101 Degrees F, Urination Difficulty, Vaginal Discharge Foul For Any Problems or Questions: Contact Your Physician ARPITA BROWN MD Apr 19, 2018 13:50
--- NOTE | 2018-04-19 15:15 | NUR ---
HOPING TO GO HOME THIS AFTERNOON. PLEASANT AFFECT. NO COMPLAINTS.
[2018-04-19 17:08] VITALS: BP 109/75
--- NOTE | 2018-04-19 17:20 | NUR ---
DISCHARGE INSTRUCTIONS REVIEWED WITH COPY TO PT. RX TRANSMITTED TO [facility]. STATES UNDERSTANDING OF ALL DISCHARGE INSTRUCTIONS AND NEED TO F/U SCHEDULED AND NEEDED.
[2018-04-19 17:35] VITALS: BP 109/75
--- NOTE | 2018-04-19 17:35 | NUR ---
DISMISSED AMB FROM [facility] WITH INFANT IN STABLE CONDITION TO [facility] BY SPOUSE AND DMITRY WARD RN.
== END 2018-04-19 17:35 | disposition home or self-care (01) | DRG 807 ==
LOC: LDRP 06:01
PROVIDERS: ADMIT Family Medicine; ATTEND Family Medicine
PROC: 10E0XZZ Delivery of Products of Conception, External Approach (ICD-10-PCS; principal; 2018-04-18)
PROC: 10907ZC Drainage of Amniotic Fluid, Therapeutic from Products of Conception, Via Natural or Artificial Opening (ICD-10-PCS; 2018-04-18)
DX: O99.02 Anemia complicating childbirth (principal); D50.9 Iron deficiency anemia, unspecified; Z37.0 Single live birth; Z3A.39 39 weeks gestation of pregnancy
CPT/HCPCS: 36415; 85025; 86850; 86900; 86901; 90715

== ENCOUNTER 2020-03-10 11:56 | Emergency (ER) | payer MEDICAID, OTHER ==
[~2020-03-10] VITALS: Ht 165 cm; Wt 63.0 kg
[~2020-03-10 11:56] MED LIST changes: +IBUP-844 PO; +METR-145 PO; -METR-197 PO
[2020-03-10] MEDS ORDERED: ONDANSETRON 4 MG/2 ML (SDV) Z0FRAN IVP ONE (12:15)
[2020-03-10] MEDS ORDERED: ANTACID SUSP 30 ML UDC (MYLANTA) PO ONE (12:15)
[2020-03-10] MEDS ORDERED: LIDOCAINE 2% VISCOUS 15 ML UDC PO ONE (12:15)
--- NOTE | 2020-03-10 12:17 | ED Abdominal Pain ---
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 Sepsis Screen: No Definite Risk Source of Information: Patient Exam Limitations: No Limitations History of Present Illness Date Seen by Provider: Mar 10, 2020 Time Seen by Provider: 12:15 Initial Comments To ER with sudden onset midline epigastric abdominal pain that began rather suddenly 2 hours ago. She only had a banana this morning for breakfast. She has never had this before. No bowel changes no troubles urinating. She does have some nausea. Still has her gallbladder. Timing/Duration: 1-3 Hours Severity/Quality: Moderate Location: Epigastric Radiation: No Radiation Activities at Onset: None Allergies and Home Medications Allergies Coded Allergies: No Known Drug Allergies (Verified , 12/06/07) Home Medications Ibuprofen 600 Mg Tablet, 600 MG PO Q6H Prescribed by: ARPITA BROWN on 04/19/18 1348 Pantoprazole Sodium 40 Mg Tablet.dr, 40 MG PO DAILY Prescribed by: IVON ZEE on 03/10/20 1413 Vit/Iron Fumarate/FA 1 Each Tablet, 1 EACH PO DAILY, (Reported) Patient Home Medication List Home Medication List Reviewed: Yes Review of Systems Review of Systems Constitutional: see HPI EENTM: No Symptoms Reported Respiratory: No Symptoms Reported Cardiovascular: No Symptoms Reported Gastrointestinal: See HPI, Abdominal Pain, Nausea Genitourinary: No Symptoms Reported Musculoskeletal: no symptoms reported Skin: no symptoms reported Psychiatric/Neurological: No Symptoms Reported Endocrine: No Symptoms Reported Hematologic/Lymphatic: No Symptoms Reported Past Rppscef-Yjdonc-Uejdut Hx Patient Social History Recent Foreign Travel: No Contact w/Someone Who Travel: No Recent Infectious Disease Expo: No Recent Hopitalizations: No Immunizations Up To Date Tetanus Booster (TDap): Less than 5yrs PED Vaccines UTD: Yes Date of Influenza Vaccine: Jan 13, 2015 Seasonal Allergies Seasonal Allergies: No Past Medical History Surgeries: Yes (ovarian cysts removed) Appendectomy Respiratory: No Cardiac: No Neurological: No Reproductive Disorders: No Female Reproductive Disorders: Denies Sexually Transmitted Disease: No HIV/AIDS: No Genitourinary: No Gastrointestinal: No Musculoskeletal: No Endocrine: No HEENT: No Cancer: No Psychosocial: No Integumentary: No Blood Disorders: No Adverse Reaction/Blood Tranf: No Family Medical History Patient reports no known family medical history. No Pertinent Family Hx Physical Exam Vital Signs Vital Signs - First Documented 03/10/20 12:00 Temp 37.0 Pulse 74 Resp 16 B/P (MAP) 137/70 (92) Pulse Ox 100 O2 Delivery Room Air Capillary Refill : Less Than 3 Seconds Height/Weight/BMI Height: 5'5.00" Weight: 186lbs. 0.0oz. [id number]; 23.00 BMI Method:Stated General Appearance: WD/WN, no apparent distress HEENT: PERRL/EOMI, normal ENT inspection Respiratory: lungs clear, normal breath sounds, no respiratory distress, no accessory muscle use Cardiovascular: regular rate, rhythm, no murmur Gastrointestinal: normal bowel sounds, soft, tenderness (Epigastric but no right upper quadrant tenderness) Extremities: normal range of motion, non-tender Neurologic/Psychiatric: alert, normal mood/affect, oriented x 3 Skin: normal color, warm/dry Progress/Results/Core Measures Results/Orders Lab Results Laboratory Tests Test 03/10/20 12:05 03/10/20 12:07 Range/Units White Blood Count 3.6 L 4.3-11.0 10^3/uL Red Blood Count 4.55 3.80-5.11 10^6/uL Hemoglobin 12.5 11.5-16.0 g/dL Hematocrit 39 35-52 % Mean Corpuscular Volume 85 80-99 fL Mean Corpuscular Hemoglobin 28 25-34 pg Mean Corpuscular Hemoglobin Concent 32 32-36 g/dL Red Cell Distribution Width 14.6 H 10.0-14.5 % Platelet Count 217 130-400 10^3/uL Mean Platelet Volume 11.0 9.0-12.2 fL Immature Granulocyte % (Auto) 0 % Neutrophils (%) (Auto) 27 L 42-75 % Lymphocytes (%) (Auto) 51 H 12-44 % Monocytes (%) (Auto) 20 H 0-12 % Eosinophils (%) (Auto) 1 0-10 % Basophils (%) (Auto) 0 0-10 % Neutrophils # (Auto) 1.0 L 1.8-7.8 10^3/uL Lymphocytes # (Auto) 1.8 1.0-4.0 10^3/uL Monocytes # (Auto) 0.7 0.0-1.0 10^3/uL Eosinophils # (Auto) 0.1 0.0-0.3 10^3/uL Basophils # (Auto) 0.0 0.0-0.1 10^3/uL Immature Granulocyte # (Auto) 0.0 0.0-0.1 10^3/uL Neutrophils % (Manual) 25 % Lymphocytes % (Manual) 53 % Monocytes % (Manual) 19 % Eosinophils % (Manual) 2 % Band Neutrophils 1 % Blood Morphology Comment NORMAL Sodium Level 140 135-145 MMOL/L Potassium Level 3.6 3.6-5.0 MMOL/L Chloride Level 107 98-107 MMOL/L Carbon Dioxide Level 20 L 21-32 MMOL/L Anion Gap 13 5-14 MMOL/L Blood Urea Nitrogen 4 L 7-18 MG/DL Creatinine 0.69 0.60-1.30 MG/DL Estimat Glomerular Filtration Rate > 60 BUN/Creatinine Ratio 6 Glucose Level 93 70-105 MG/DL Calcium Level 8.6 8.5-10.1 MG/DL Corrected Calcium 8.4 L 8.5-10.1 MG/DL Total Bilirubin 0.3 0.1-1.0 MG/DL Aspartate Amino Transf (AST/SGOT) 33 5-34 U/L Alanine Aminotransferase (ALT/SGPT) 20 0-55 U/L Alkaline Phosphatase 65 40-136 U/L Total Protein 6.8 6.4-8.2 GM/DL Albumin 4.2 3.2-4.5 GM/DL Lipase 57 8-78 U/L Serum Test, Qualitative NEGATIVE NEGATIVE Urine Color YELLOW Urine Clarity CLEAR Urine pH 5.5 5-9 Urine Specific [place] >=1.030 1.016-1.022 Urine Protein NEGATIVE NEGATIVE Urine Glucose (UA) NEGATIVE NEGATIVE Urine Ketones TRACE H NEGATIVE Urine Nitrite NEGATIVE NEGATIVE Urine Bilirubin NEGATIVE NEGATIVE Urine Urobilinogen 1.0 < = 1.0 MG/DL Urine Leukocyte Esterase NEGATIVE NEGATIVE Urine RBC (Auto) 3+ H NEGATIVE Urine RBC 10-25 H /HPF Urine WBC NONE /HPF Urine Squamous Epithelial Cells 10-25 H /HPF Urine Crystals PRESENT H /LPF Urine Calcium Oxalate Crystals LARGE H /LPF Urine Amorphous Sediment MOD DON URATES H /LPF Urine Bacteria TRACE /HPF Urine Casts NONE /LPF Urine Mucus LARGE H /LPF Urine Culture Indicated NO My Orders Orders - ZEE,PETER J STRIPE MARKER Cbc With Automated Diff (03/10/20 12:10) Comprehensive Metabolic Panel (03/10/20 12:10) Lipase (03/10/20 12:10) Ua Culture If Indicated (03/10/20 12:10) Ed Iv/Invasive Line Start (03/10/20 12:10) Ct Abdomen/Pelvis W (03/10/20 12:10) Antacid Suspension (Mylanta Suspension (03/10/20 12:15) Lidocaine 2% Viscous 15 Ml (Xylocaine Vi (03/10/20 12:15) Ondansetron Injection (Zofran Injectio (03/10/20 12:15) Hcg,Qualitative Serum (03/10/20 12:10) Manual Differential (03/10/20 12:05) Ns Iv 1000 Ml (Sodium Chloride 0.9%) (03/10/20 13:00) Fentanyl Injection (Sublimaze Injection (03/10/20 13:00) Medications Given in ED Current Medications Medications Dose Ordered Sig/Jadon Route Start Time Stop Time Status Last Admin Dose Admin Al Hydrox/Mg Hydrox/Simethicone 10 ml ONCE ONCE PO 03/10/20 12:15 03/10/20 12:16 DC 03/10/20 12:29 10 ML Fentanyl Citrate 50 mcg ONCE ONCE IVP 03/10/20 13:00 03/10/20 13:01 DC 03/10/20 13:14 50 MCG Iohexol 100 ml ONCE ONCE IV 03/10/20 12:45 03/10/20 13:07 DC 03/10/20 13:44 92 ML Lidocaine HCl 5 ml ONCE ONCE PO 03/10/20 12:15 03/10/20 12:16 DC 03/10/20 12:29 5 ML Ondansetron HCl 4 mg ONCE ONCE IVP 03/10/20 12:15 03/10/20 12:16 DC 03/10/20 12:27 4 MG Sodium Chloride 100 ml ONCE ONCE IV 03/10/20 12:45 03/10/20 13:07 DC 03/10/20 13:44 80 ML Vital Signs/I&O 03/10/20 12:00 Temp 37.0 Pulse 74 Resp 16 B/P (MAP) 137/70 (92) Pulse Ox 100 O2 Delivery Room Air Blood Pressure Mean: 92 Departure Communication (Admissions) Family Conversation 1412-her symptoms did improve with GI cocktail. NAME: ANKUSH TREVINO [facility] REC#: [id number] PT STATUS: REG ER : 1990 PHYSICIAN: IVON ZEE APRN ADMIT DATE: 03/10/20/ER Signed Date of Exam:03/10/20 CT ABDOMEN/PELVIS W EXAMINATION: CT Abdomen and Pelvis with intravenous contrast. TECHNIQUE: Multiple contiguous axial images were obtained through the abdomen and pelvis after the uneventful administration of intravenous contrast. All CT scans use one or more of the following dose optimizing techniques: automated exposure control, MA and/or KvP adjustment based on a patient size and exam type, or iterative reconstruction. HISTORY: Epigastric pain. COMPARISON: None available. FINDINGS: The heart is unremarkable. The included lung bases are clear. The liver, spleen, pancreas, adrenal glands, and kidneys have a normal appearance. There is no pathologically enlarged mesenteric or retroperitoneal adenopathy. The bowel loops are nondilated. The appendix is surgically absent. There is no free fluid or free air. No acute osseous abnormalities. Ureters and bladder are grossly normal. There is no free air, loculated collection, or adenopathy in the pelvis. IMPRESSION: 1. No evidence of bowel obstruction, free fluid, or free air. No acute abnormality is visualized in the abdomen and pelvis. Dictated by: Dictated on workstation # [id number] Dict: 03/10/20 1359 Trans: 03/10/20 1407 [facility] [id number] Interpreted by: CORDELIA DE LOS SANTOS DO Electronically signed by: CORDELIA DE LOS SANTOS DO 03/10/20 1407 Impression Primary Impression: Epigastric pain Disposition: HOME, SELF-CARE Condition: Stable Departure-Patient Inst. Decision time for Depature: 14:12 Referrals: ARPITA BROWN MD (PCP/Family) Primary Care Physician Patient Instructions: Gastritis (DC) Add. Discharge Instructions: 1. Take the acid pharmacy service associate as directed. Your labs and CT scan look normal. If this is a recurrent problem for you the next step will be to see a surgeon to evaluate the gallbladder with ultrasound and possibly to have a scope to look at the inside lining of your stomach and esophagus. Return to ER for any intolerable pain or other concerns. All discharge instructions reviewed with patient and/or family. Voiced understanding. Scripts Pantoprazole Sodium (Protonix) 40 Mg Tablet. 40 MG PO DAILY, #14 TAB Prov: IVON ZEE APRN 03/10/20 IVON ZEE APRN Mar 10, 2020 12:17
[2020-03-10 12:20] LABS: BASOPHILS % (AUTO) 0 % (0-10); EOSINOPHILS # (AUTO) 0.1 10^3/uL (0.0-0.3); EOSINOPHILS % (AUTO) 1 % (0-10); HEMATOCRIT 39 % (35-52); HEMOGLOBIN 12.5 g/dL (11.5-16.0); LYMPHOCYTES # (AUTO) 1.8 10^3/uL (1.0-4.0); LYMPHOCYTES % (AUTO) 51 % (12-44); MEAN CORPUSCULAR HEMOGLOBIN 28 pg (25-34); MEAN CORPUSCULAR HGB CONC 32 g/dL (32-36); MEAN CORPUSCULAR VOLUME 85 fL (80-99); MONOCYTES # (AUTO) 0.7 10^3/uL (0.0-1.0); MONOCYTES % (AUTO) 20 % (0-12); NEUTROPHILS % (AUTO) 27 % (42-75); PLATELET COUNT 217 10^3/uL (130-400); WHITE BLOOD COUNT 3.6 10^3/uL (4.3-11.0)
[2020-03-10 12:30] LABS: BILIRUBIN,URINE NEGATIVE (NEGATIVE); CLARITY,URINE CLEAR; COLOR,URINE YELLOW; GLUCOSE, URINE (UA) NEGATIVE (NEGATIVE); KETONES,URINE TRACE (NEGATIVE); LEUKOCYTE ESTERASE ,URINE NEGATIVE (NEGATIVE); NITRITE,URINE NEGATIVE (NEGATIVE); PH,URINE 5.5 (5-9); PROTEIN,URINE NEGATIVE (NEGATIVE)
[2020-03-10 12:32] LABS: ALBUMIN 4.2 GM/DL (3.2-4.5)
[2020-03-10 12:33] LABS: CHLORIDE 107 MMOL/L (98-107); POTASSIUM 3.6 MMOL/L (3.6-5.0); SODIUM 140 MMOL/L (135-145)
[2020-03-10 12:34] LABS: CALCIUM 8.6 MG/DL (8.5-10.1)
[2020-03-10 12:35] LABS: GLUCOSE 93 MG/DL (70-105); TOTAL PROTEIN 6.8 GM/DL (6.4-8.2)
[2020-03-10 12:36] LABS: CARBON DIOXIDE 20 MMOL/L (21-32)
[2020-03-10 12:37] LABS: BILIRUBIN,TOTAL 0.3 MG/DL (0.1-1.0)
[2020-03-10 12:38] LABS: ALKALINE PHOSPHATASE 65 U/L (40-136)
[2020-03-10 12:39] LABS: AMORPHOUS SEDIMENT,UR MOD AMOR URATES /LPF; BACTERIA,URINE TRACE /HPF; CALCIUM OXALATE CRYSTALS,UR LARGE /LPF
[2020-03-10 12:39] LABS: CREATININE SERUM 0.69 MG/DL (0.60-1.30); GFR ESTIMATED > 60
[2020-03-10 12:40] LABS: BUN/CREATININE RATIO 6
[2020-03-10 12:41] LABS: ALANINE AMINOTRANSFERASE 20 U/L (0-55)
[2020-03-10 12:42] LABS: LIPASE 57 U/L (8-78)
[2020-03-10] MEDS ORDERED: NS 100 ML (IVPB) BAG IV ONE (12:45)
[2020-03-10] MEDS ORDERED: HOLD METFORMIN - RECEIVED CONTRAST 20 ML VIAL IV SCH (12:45)
[2020-03-10] MEDS ORDERED: IOHEXOL 350 MG/ML 100 ML (OMNIPAQUE 350) VIAL IV ONE (12:45)
[2020-03-10 12:55] LABS: BAND NEUTROPHILS 1 %; EOSINOPHILS % (MANUAL) 2 %; LYMPHOCYTES % (MANUAL) 53 %; MONOCYTES % (MANUAL) 19 %; NEUTROPHILS % (MANUAL) 25 %; RBC MORPH NORMAL
[2020-03-10] MEDS ORDERED: NS IV 1000 ML 1,000 ML IV SCH (13:00)
[2020-03-10] MEDS ORDERED: fentaNYL INJECTION 100 MCG/2 ML AMP IVP ONE (13:00)
--- NOTE | 2020-03-10 14:04 | Diagnostic Imaging Report ---
EXAMINATION: CT Abdomen and Pelvis with intravenous contrast. TECHNIQUE: Multiple contiguous axial images were obtained through the abdomen and pelvis after the uneventful administration of intravenous contrast. All CT scans use one or more of the following dose optimizing techniques: automated exposure control, MA and/or KvP adjustment based on a patient size and exam type, or iterative reconstruction. HISTORY: Epigastric pain. COMPARISON: None available. FINDINGS: The heart is unremarkable. The included lung bases are clear. The liver, spleen, pancreas, adrenal glands, and kidneys have a normal appearance. There is no pathologically enlarged mesenteric or retroperitoneal adenopathy. The bowel loops are nondilated. The appendix is surgically absent. There is no free fluid or free air. No acute osseous abnormalities. Ureters and bladder are grossly normal. There is no free air, loculated collection, or adenopathy in the pelvis. IMPRESSION: 1. No evidence of bowel obstruction, free fluid, or free air. No acute abnormality is visualized in the abdomen and pelvis. Dictated by: Dictated on workstation # [id number]
[2020-03-10] MEDS ORDERED: PANT40TA2 PO ×2 (14:13→14:21)
[2020-03-10 14:24] VITALS: BP 137/70
== END 2020-03-10 14:24 | disposition home or self-care (01) ==
LOC: EDUNIT# 11:56 → ER 11:58
DX: R10.13 Epigastric pain (principal)
CPT/HCPCS: 36415; 74177; 80053; 81000; 83690; 84703; 85007; 85027

== ENCOUNTER → 2020-04-02 | Outpatient (CLI) | payer OTHER ==
[~2020-04-02] MED LIST changes: +PANT40TA2 PO
--- NOTE | 2020-04-02 13:13 | Diagnostic Imaging Report ---
PROCEDURE: Pelvic comp/transvaginal sonogram. TECHNIQUE: Complete transabdominal and transvaginal pelvic ultrasound was performed. In addition, limited pelvic Doppler was performed. INDICATION: Abnormal uterine bleeding. FINDINGS: The uterus is retroverted measuring 8.9 x 6.0 x 7.9 cm. The endometrium is 7 mm in thickness. There is an anechoic region within the endometrium which may represent fluid. No definite yolk sac or pole is seen within this. No myometrial mass is identified. The right ovary measures 2.9 x 1.8 x 2.1 cm and the left ovary measures 2.5 x 1.1 x 1.6 cm. The ovaries contain follicles. There is blood flow to both ovaries. No adnexal mass or free pelvic fluid is detected. IMPRESSION: There appears to be fluid within the endometrial canal. The study is otherwise unremarkable. Dictated by: Dictated on workstation # [id number]
== END ==
LOC: RAD 10:00
PROVIDERS: ATTEND Family Medicine
DX: N93.9 Abnormal uterine and vaginal bleeding, unspecified (principal)
CPT/HCPCS: 76830; 76856